=== PATIENT | male | born 1965 | race African-American/Black ===

== ENCOUNTER 2020-11-15 08:12 | Emergency (ER) | payer BC, SELFPAY ==
--- NOTE | ~2020-11-15 | CT_ITS ---
EXAMINATION: CTA brain carotid EXAM DATE: 11/15/2020 09:15 INDICATION: Dizziness since Sunday. TECHNIQUE: Noncontrast head CT. Spiral CTA of the carotid arteries was performed with intravenous i njection 100 cc of Omnipaque 350. Axial, coronal, sagittal reformatted images reviewed. Additional r eformatted images created on dedicated 3-D workstation. NASCET comparable standard used to assess th e degree of arterial stenosis. Spiral CT angiogram cerebral arteries performed with the same intrave nous injection of contrast. Source images of the brain CTA transferred to dedicated workstation for 3 -D rotational image creation. Coronal, sagittal maximum intensity pixel images also reviewed. The d ose-length product (DLP) for this examination was 1766.28 mGy-cm. The exposure was tailored accordi ng to patient size, and iterative reconstruction (ASIR) was used as additional dose reduction techniq ue. There is no prior study for comparison. FINDINGS: Minimal left carotid bulb arterial sclerosis. 0% carotid stenosis bilaterally. There are b ilateral posterior communicating artery dominant posterior cerebral arteries. There is no carotid o r vertebral basilar arterial dissection or fibromuscular dysplasia. There are no cerebral artery aneu rysms. There is symmetric cerebral artery arborization. The sagittal, transverse and sigmoid sinuses enhance normally, no venous sinus thrombosis. Internal cerebral veins also enhance normally. There is no acute intraparenchymal hemorrhage. No evidence of intraparenchymal brain mass lesion. N o evidence of acute infarction. There is no mass effect or midline shift. There is no obstructive hyd rocephalus suspected. There are no extra-axial collections. There are no calvarial acute fractures. There are no areas of abnormal enhancement on the postcontrast images. IMPRESSION: 1. No cervical arterial dissection or cerebral artery aneurysm. 2. No carotid stenosis. Reviewed, dictated and finalized at location [facility]. GRAPHY TECHNICIAN
[2020-11-15 08:15] VITALS: BP 155/108; PULSE 67; RESP 18; TEMP 36.8; O2SAT 98
--- NOTE | 2020-11-15 08:21 | ECG_ITS ---
Measurements Intervals [place] Rate: 64 P: 48 IA: 242 QRS: -13 QRSD: 103 T: 11 QT: 400 QTc: 413 Interpretive Statements SINUS RHYTHM WITH FIRST DEGREE AV BLOCK DELAYED PRECORDIAL R/S TRANSITION BASELINE ARTIFACT- I, II, V1 ABNORMAL ECG Electronically Signed On 11-15-2020 8:27:05 [employer]OOK[employer] MECHANIC by James Bryson D.O.
[2020-11-15 08:25] VITALS: BP 149/98; BP 155/108; PULSE 66; PULSE 70
[2020-11-15 08:26] VITALS: BP 160/107; PULSE 65
[2020-11-15 08:31] VITALS: BP 150/102; PULSE 57; RESP 15; O2SAT 95
[2020-11-15 08:31] LABS: Basophils Absolute Auto 0.1 K/mm3 (0.0-0.1); Basophils Percent Auto 0.9 % (0.2-1.2); Eosinophils Absolute Auto 0.4 K/mm3 (0-0.3); Hemoglobin 13.4 g/dL (14.0-18.0); Immature Granulocyte Absolute 0.08 K/mm3 (0.00-0.031); Immature Granulocyte Percent A 0.7 % (0-0.5); Immature Platelet Fraction Pct 7.4 % (0.9-11.2); Lymphocytes Absolute Auto 3.01 K/mm3 (0.9-3.2); Mean Corpuscular HGB Conc 29.1 g/dl (32-36); Mean Corpuscular Hemoglobin 18.4 pg (26-34); Monocytes Absolute Auto 0.9 K/mm3 (0.1-0.6); Monocytes Percent Auto 7.6 % (2.6-8.5); Neutrophils Absolute Auto 7.2 K/mm3 (1.3-6.7); Neutrophils Percent Auto 61.8 % (45.5-73.1); Platelet Count Result 731 k/mm3 (150-375); Red Cell Distribution Width 26.5 % (11.5-14.5); White Blood Count 11.6 K/mm3 (4.5-10.0)
[2020-11-15 08:41] LABS: Platelet Estimate Increased (Adequate)
[2020-11-15 08:44] LABS: Anisocytosis 2+ (NORMAL); Ovalocytes 2+ (NORMAL); Target Cells 2+ (NORMAL)
[2020-11-15 08:45] LABS: Stomatocytes 2+ (NORMAL)
--- NOTE | 2020-11-15 08:47 | ED.GENADULT ---
HPI - General Adult General Chief complaint: Dizziness Stated complaint: dizziness Time Seen by Provider: 11/15/20 08:18 Source: patient History of Present Illness HPI narrative: Patient is a 55 y/o male complaining of dizziness starting yesterday morning around 8:00 AM. He states that his dizziness was severe and it was a room spinning sensation. However, it resolved spontaneously after a few minutes. He had another similar episode this morning and it also resolved spontaneously. He states that the dizziness this was more a light-headed sensation than room-spinning sensation. He does not feel dizzy at this time. He states that movement may cause his dizziness to recur. He has no nausea, vomiting, chest pain, SOB, focal weakness or numbness. He states that he has periodic phlebotomy for thrombocytosis. He sees Dr. Jacob as his oncologist. Related Data Home Medications Medication Instructions Recorded Confirmed aspirin [Adult Low Dose Aspirin] 81 mg PO DAILY 11/15/20 11/15/20 atenolol 50 mg PO DAILY 11/15/20 11/15/20 diclofenac sodium 75 mg PO DAILY 11/15/20 11/15/20 enalapril-hydrochlorothiazide 1 tablet PO DAILY 11/15/20 11/15/20 Allergies Allergy/AdvReac Type Severity Reaction Status Date / Time No Known Allergies Allergy Mild Verified 11/15/20 08:19 Review of Systems Constitutional: Constitutional: Denies chills, Denies fever(s), Denies headache(s) and Denies weakness Eyes: Eyes: Denies blurry vision ENT: Denies headache(s) and Denies neck pain Cardiovascular: Cardiovascular: Denies chest pain and Denies dyspnea Respiratory: Respiratory: Denies cough and Denies dyspnea Gastrointestinal: Gastrointestinal: Denies abdominal pain, Denies diarrhea, Denies nausea and Denies vomiting Genitourinary: Genitourinary: Denies hematuria and Denies dysuria Musculoskeletal: Musculoskeletal: Denies back pain and Denies neck pain Neurologic: Reports dizziness, Denies headache(s) and Denies weakness PMFSH Social History Social History Gender identity (if verbalized by the patient): Male Exam Const: General: no acute distress and well developed Orientation/consciousness: oriented to person, oriented to place, oriented to time and patient oriented x3 HENMT: Head: normocephalic Ears: external ears normal General nose exam: Normal external nose present Eyes: General: appearance normal, both eyes and all related structures Conjunctivae: conjunctivae normal Neck: Neck: normal visual inspection and full ROM Chest: Chest palpation & inspection: normal inspection of the chest and no tenderness Resp: Effort & Inspection: normal respiratory effort Auscultation: clear to auscultation bilaterally Cardio: Rate: regular rate Rhythm: regular rhythm GI: GI Palp: No abdominal tenderness and Yes Soft to palpation Skin: General skin exam: normal color and turgor normal Neuro: General: oriented to person, oriented to place, oriented to time and patient oriented x3 Cranial nerves: Yes CN's II-XII intact bilaterally Cognition (Neuro): normal cognition Speech: normal speech Motor exam (neuro): 5/5 motor strength present throughout Sensory Exam: normal sensation Coordination: [id number] test normal and [id number] test normal Extrem: General: normal to inspection, full ROM and no pedal edema Psych: Appearance: grossly normal Mental Status: mental status grossly normal Affect: normal affect Course Reevaluation(s) Reevaluation #1: Rechecked. Patient does not feel dizzy at this time. He states that he gets dizzy when he gets up to move around. Offered patient admission for observation and further work up, but patient declined. Date: 11/15/20 Time: 11:03 Vital Signs Vital signs: Vital Signs Temperature 36.8 C 11/15/20 08:15 Pulse Rate 67 11/15/20 08:15 Respiratory Rate 18 11/15/20 08:15 Blood Pressure 155/108 H 11/15/20 08:15 Pulse Oximetry 98
[2020-11-15 08:48] LABS: Alanine Aminotransferase 18 U/L (4-50); Albumin Level 4.2 g/dL (3.5-5.1); Alkaline Phosphatase 69 U/L (38-126); Anion Gap 5 mmol/L (8-16); Aspartate Amino Transferase 40 U/L (17-59); Blood Urea Nitrogen 11 mg/dL (9-20); Calcium 8.8 mg/dL (8.4-10.2); Carbon Dioxide 28 mmol/L (22-30); Chloride 104 mmol/L (98-107); Estimated CRCL calculation 75 ml/min; Estimated Glomerular Filt Rate > 60; Glucose 107 mg/dL (75-110); Potassium 4.1 mmol/L (3.4-5.0); Sodium 137 mmol/L (137-145)
[2020-11-15 10:34] VITALS: BP 157/106; PULSE 61; RESP 17; O2SAT 97
[2020-11-15 11:16] VITALS: BP 151/106; PULSE 56; RESP 20; O2SAT 98
== END 2020-11-15 11:18 | disposition home or self-care (01) ==
PROVIDERS: Emergency Provider Emergency Medicine
DX: R42 Dizziness and giddiness (principal); I10 Essential (primary) hypertension; I44.0 Atrioventricular block, first degree; R94.31 Abnormal electrocardiogram [ECG] [EKG]
CPT/HCPCS: 36415; 70496; 70498; 80053; 85025; 85055; 93005; 99284; Q9967

== ENCOUNTER 2022-12-01 21:22 | Emergency (ER) | payer BC, SELFPAY ==
[2022-12-01] VITALS (11 sets, daily range): BP systolic 91–122; BP diastolic 54–79; PULSE 77–102; RESP 14–22; TEMP 36.7; O2SAT 95–99
--- NOTE | ~2022-12-01 | CT_ITS ---
EXAMINATION: CT BRAIN W/O DATE: 12/02/2022 02:14 INDICATION: Headache. Sensitivity to light. TECHNIQUE: Computed tomography (CT) of the head was performed without intravenous contrast. The dose- length product was 681.00 mGy-cm. COMPARISON: No prior studies for comparison. FINDINGS: Normal brain parenchymal volume for age. Normal kendrick-white differentiation. No acute intrac ranial hemorrhage, infarction, mass or mass effect. No ventriculomegaly or midline shift. Midline sagittal images demonstrate a normal corpus callosum, c raniovertebral junction and sella turcica. Basilar cisterns are patent. Paranasal sinuses and mastoids are pneumatized. No depressed skull fractures. IMPRESSION: 1. No acute intracranial abnormality. Reviewed, dictated and finalized at location [facility]. TRICIAN WIRING
[2022-12-01 22:09] LABS: Hematocrit 50.3 % (42.0-52.0); Hemoglobin 14.9 g/dL (14.0-18.0); Immature Platelet Fraction Pct 5.2 % (0.9-11.2); Mean Corpuscular HGB Conc 29.6 g/dl (32-36); Mean Corpuscular Hemoglobin 18.1 pg (26-34); Mean Corpuscular Volume 61.3 fl (80-100); Platelet Count Result 485 k/mm3 (150-375); Red Blood Count 8.21 M/mm3 (4.6-6.20); Red Cell Distribution Width 29.2 % (11.5-14.5); White Blood Count 17.5 K/mm3 (4.5-10.0)
[2022-12-01 22:17] LABS: Alanine Aminotransferase 30 U/L (6-50); Albumin Level 4.2 g/dL (3.5-5.1); Alkaline Phosphatase 92 U/L (38-126); Anion Gap 9 mmol/L (8-16); Aspartate Amino Transferase 55 U/L (17-59); Blood Urea Nitrogen 16 mg/dL (9-20); Calcium 8.8 mg/dL (8.4-10.2); Carbon Dioxide 24 mmol/L (22-30); Chloride 100 mmol/L (98-107); Estimated CRCL calculation 66 ml/min; Estimated Glomerular Filt Rate > 60; Glucose 126 mg/dL (65-110); INR 1.3; Partial Thromboplastin Time 36.5 SECONDS (22.3-36.8); Potassium 3.5 mmol/L (3.4-5.0); Prothrombin Time 15.5 Seconds (11.1-14.7); Sodium 133 mmol/L (137-145)
[2022-12-01 22:20] LABS: Influenza A QL RT-PCR Negative (Negative); Influenza B QL RT-PCR Negative (Negative); SARS-CoV-2 RNA PCR Negative
[2022-12-01 23:18] LABS: Band Neutrophils Percent 16 % (0-6); Eosinophils Absolute Manual 0.52 K/mm3 (0.02-0.5); Eosinophils Percent Manual 3 % (0-4); Lymphocytes Absolute Manual 1.22 K/mm3 (1.1-4.5); Metamyelocytes Percent 1 %; Monocytes Percent Manual 8 % (3-9); Myelocytes Percent 2 %; Neutrophils Absolute Manual 13.82 K/mm3 (1.3-6.7); Neutrophils Percent Manual 63 % (46-73); Platelet Estimate Adequate (Adequate); Total Cells Counted 100
[2022-12-01 23:19] LABS: Anisocytosis 3+ (NORMAL); Large Platelets Present; Macrocytosis 3+ (NORMAL); Microcytosis 1+ (NORMAL); Ovalocytes 3+ (NORMAL); Poikilocytosis 3+ (NORMAL); Spherocytes 1+ (NORMAL); Tear Drop Cells 2+ (NORMAL)
[2022-12-01 23:20] LABS: Schistocytes 2+ (NORMAL); Target Cells 2+ (NORMAL)
[2022-12-01 23:21] LABS: Atypical Lymphocytes Present; Hyperchromasia 1+ (NORMAL); Rouleaux 1+ (NORMAL)
[2022-12-01 23:51] LABS: Appearance Urine Clear (Clear); Bilirubin Urine 1+ (Negative); Blood Urine Negative (Negative); Color Urine Dark Yellow (Yellow); Glucose Urine UA Negative (Negative); Ketones Urine Trace mg/dL (Negative); Leukocyte Esterase Ur Trace LEU/UL (Negative); Nitrate Urine Negative (Negative); Protein Urine 1+ mg/dL (Negative); Specific Grav Ur 1.025 (1.001-1.035); pH Urine 5.5 (5.0-9.0)
[2022-12-01 23:56] LABS: Bacteria Urine Trace /hpf; Mucus Urine Moderate /lpf; RBC Urine 0-2 /hpf (0-2); WBC Urine 31-50 /hpf
[2022-12-01 23:57] LABS: Add Urine Microscopic? YES
[2022-12-02] MEDS: SODIUM CHLORIDE 0.9% IV 1,000 ML 999 ML IV CONT (00:30)
[2022-12-02] MEDS: MORPHINE SULFATE (*CRX) 4 MG/ML INJ IV PUSH (00:31)
[2022-12-02 01:02] VITALS: BP 126/75; PULSE 75; RESP 15; O2SAT 99
[2022-12-02] MEDS: KETOROLAC 30 MG/ML VIAL (*BKC) IV PUSH (01:28)
[2022-12-02 01:30] VITALS: PULSE 75; RESP 18; O2SAT 99
[2022-12-02 01:45] VITALS: PULSE 73; RESP 19; O2SAT 97
[2022-12-02 01:46] VITALS: BP 118/77; PULSE 76; RESP 18; O2SAT 97
--- NOTE | 2022-12-02 03:10 | ED.HA ---
HPI - Headache General Chief Complaint: Headache Stated Complaint: Headache, fatigue Time Seen by Provider: 12/01/22 21:40 History of Present Illness HPI Narrative: Patient is a 57-year-old male who presents ER with reports of headache. Ongoing for couple of days. Not sudden onset. Frontal and throbbing. /10. No change in vision or hearing. No numbness or tingling. Denies any neck pain or stiffness or sharp pains extending down his spine. No known sick contacts. Patient has history of polycythemia vera and receives occasional phlebotomy. Recently had his hydroxyurea dose increased. Patient reports subjective hot flashes and has been sweating. No documented fevers. No shaking chills. Patient reports history of sinusitis in the past but has no sinus congestion or pain at this time. Related Data Home Medications Medication Instructions Recorded Confirmed aspirin 81 mg tablet 81 mg PO DAILY 11/15/20 11/15/20 atenolol 50 mg tablet 50 mg PO DAILY 11/15/20 11/15/20 diclofenac sodium 75 mg 75 mg PO DAILY 11/15/20 11/15/20 tablet,delayed release enalapril 10 1 tablet PO DAILY 11/15/20 11/15/20 mg-hydrochlorothiazide 25 mg tablet Allergies Allergy/AdvReac Type Severity Reaction Status Date / Time No Known Allergies Allergy Mild Verified 12/01/22 22:09 Review of Systems Review of Systems: All systems reviewed & are unremarkable except as noted in HPI and below Constitutional: Constitutional: Denies chills, Reports fatigue and Reports fever(s) ENT: Denies nasal congestion and Denies sore throat Cardiovascular: Cardiovascular: Denies chest pain, Denies rapid heart rate and Denies radiating jaw, neck or arm pain Respiratory: Respiratory: Denies cough and Denies dyspnea Gastrointestinal: Gastrointestinal: Denies abdominal pain, Denies nausea and Denies vomiting Genitourinary: Genitourinary: Denies dysuria and Denies urinary frequency Comments: Dark urine Musculoskeletal: Musculoskeletal: Denies back pain, Denies myalgias and Denies arthralgias Neurologic: Denies confusion, Reports headache(s), Denies focal weakness and Denies numbness PMF Past Medical History Medical History (Updated 12/02/22 @ 03:18 by Yazan Sandhu MD) Hypertension Polycythemia vera Surgical History Surgical History (Updated 12/02/22 @ 03:13 by Yazan Sandhu MD) No pertinent past surgical history Social History Social History Gender identity (if verbalized by the patient): Male Exam Narrative: GENERAL: Well-appearing, well-nourished, and in no acute distress. HEAD: Normocephalic, atraumatic. ENT: Mucous membranes moist. NECK: Supple. Full range of motion without meningismus. CHEST: Clear to auscultation. No respiratory distress. HEART: Regular rate and rhythm. Normal peripheral pulses. ABDOMEN: Soft, nontender, nondistended. EXTREMITIES: Normal range of motion. No edema. SKIN: Warm, dry, no rash. NEURO: Alert and oriented x3. PSYCH: Normal mood and affect. Course Course Emergency Course: Patient resting comfortably. Headache went from 8/10 to 7/10 after morphine. Patient then received some fluids and Toradol and his headache went down to 3/10. Patient is in no distress and is nontoxic in appearance. He has had normal vital signs throughout the ER stay with the exception of when he presented to triage. He is without neurologic symptoms or meningeal signs. Flu and COVID testing were negative. CT scan of his head was unrevealing. Patient's urine does have the appearance that it could be infected and he does endorse that his urine is much darker than typical. He will be started on antibiotics to treat this. After having a sandwich and a soda patient's patients SHEA has resolved. Vital Signs Vital signs: Vital Signs Temperature 98.0 F 12/01/22 21:27 Pulse Rate 102 H 12/01/22 21:27 Respiratory Rate 16 12/01/22 21:27 Blood Pressure 91/61
[2022-12-02] MEDS: CEFUROXIME AXETIL 250 MG TABLET 500 MG PO (03:32)
[2022-12-02 03:33] VITALS: BP 120/82; PULSE 77; RESP 14; O2SAT 95
== END 2022-12-02 03:50 | disposition home or self-care (01) ==
PROVIDERS: Emergency Medicine; Emergency Provider Emergency Medicine
DX: N39.0 Urinary tract infection, site not specified (principal); R51.9 Headache, unspecified; Z20.822 Contact with and (suspected) exposure to COVID-19; I10 Essential (primary) hypertension; D75.1 Secondary polycythemia; Z79.82 Long term (current) use of aspirin
CPT/HCPCS: 36415; 70450; 80053; 81001; 85025; 85055; 85610; 85730; 87086; 87636; 96361; 96374; 96375; 99284; A9270; J1885; J2270; J7030

== ENCOUNTER 2022-12-16 10:58 | Inpatient (IN) | payer BC, SELFPAY ==
[2022-12-16] VITALS (50 sets, daily range): BP systolic 87–135; BP diastolic 50–88; PULSE 81–102; RESP 14–31; TEMP 36.1–38.7; O2SAT 90–98; BMI 36.9
--- NOTE | ~2022-12-16 | CT_ITS ---
EXAMINATION: CT abdomen pelvis w con DATE: 12/16/2022 13:18 INDICATION: Abdominal pain, nausea and vomiting. Urinary tract infection 2 weeks ago. Polycythemia ve ra. TECHNIQUE: Computed tomography (CT) of the abdomen and pelvis was performed with 100 CC Omnipaque 350 intravenous contrast. Automated exposure control and iterative reconstruction technique were employe d. Exam dose: 1054.28 mGy-cm total exam DLP. COMPARISON: None. FINDINGS: Patchy nodular infiltrates of middle and both lower lobes with some focal atelectasis or co nsolidation at the dependent lower lobes, right greater than left. Borderline splenomegaly, spleen measuring up to 13.6 cm vertical dimension. There are multiple hypoat tenuating lesions of variable size involving the spleen. Consider multiple splenic infarcts, essentia lly all of these lesions extend to the margin of the spleen. Splenic cysts, hemangioma, hamartomas, l ymphoma, myelofibrosis, leukemia, amyloidosis, sarcoidosis, and cultures disease and abscesses are le ss likely considerations in the differential diagnosis. Probable focal fatty infiltration of the medial segment of the left hepatic lobe anteromedially near the fissure for the ligamentum teres. No other hepatic space-occupying mass lesion is evident. The ga llbladder is unremarkable. No bile duct or pancreatic duct dilatation. No pancreatic mass lesion or c alcification. Approximately 10 x 15 mm left adrenal mass, likely a small adrenal adenoma. 1.7 cm mid right renal cyst. Exophytic lateral lower pole left renal 1.6 cm cyst. No urinary tract calculus or hydroureteronephrosis. There is moderate diffuse thickening of the urinary bladder wall likely due to prostatomegaly. Normal caliber of the abdominal aorta. No intraperitoneal or retroperitoneal or pelvic mass lesion or adenopathy or ascites. No bowel obstruction, bowel wall thickening, pneumatosis or intraperitoneal free air. Fat-containing umbilical hernia. Moderate degenerative disease at L4-5. Severe degenerative disc disease and mild retrolisthesis at L5-S1. Bilateral hip osteoarthritis. No suspicious osteolytic or osteoblastic lesions. IMPRESSION: Patchy bilateral lower lobe and middle lobe nodular infiltrates, bilateral lower lobe focal areas of atelectasis or consolidation Borderline splenomegaly, multiple hypoattenuating lesions of the spleen; consider multiple splenic in farcts, splenic cysts, abscesses; further differential diagnosis is included above 10 x 15 mm left adrenal mass Bilateral renal cysts Prostatomegaly, likely accounting for moderate diffuse bladder wall thickening Reviewed, dictated and finalized at [facility]. Reviewed, dictated and finalized at location [facility]. A PRODUCER IMPRESSION: Patchy bilateral lower lobe and middle lobe nodular infiltrates, bilateral lowe r lobe focal areas of atelectasis or consolidation Borderline splenomegaly, multiple hypoattenuating lesions of the spleen; consid er multiple splenic infarcts, splenic cysts, abscesses; further differential di agnosis is included above 10 x 15 mm left adrenal mass Bilateral renal cysts Prostatomegaly, likely accounting for moderate diffuse bladder wall thickening
--- NOTE | ~2022-12-16 | XR_ITS ---
XR chest 1V portable DATE: 12/16/2022 11:53 INDICATION: Cough TECHNIQUE: Portable upright AP chest on December 16, 2022 at 1152 hours COMPARISON: None FINDINGS: There is prominence of the minor fissure suggesting subpleural edema. There is mild pulmona ry vascular congestion and redistribution. Heart size appears within normal range considering magnifi cation associated with AP projection. There are bilateral primarily central and lower lung infiltrates which may be due to pulmonary edema. Pneumonia or aspiration are not excluded. Osteophytic change at both glenohumeral joints. Osteopenia. IMPRESSION: Congestive changes, including bilateral central and lower lung zone infiltrates, which ma y be due to pulmonary edema; pneumonia or aspiration are not excluded. Reviewed, dictated and finalized at location A. CTOR OF PATIENT SAFETY IMPRESSION: Congestive changes, including bilateral central and lower lung zone infiltrates, which may be due to pulmonary edema; pneumonia or aspiration are not excluded.
--- NOTE | ~2022-12-16 | CT_ITS ---
EXAMINATION: CT chest abdomen pelvis wo con DATE: 12/19/2022 08:55 INDICATION: Leukocytosis and fever TECHNIQUE: Transaxial computed tomographic images of the chest, abdomen, and pelvis were obtained wit hout intravenous contrast. The dose-length product (DLP) was 1449.41 mGy-cm. Automated exposure contr ol and iterative reconstruction technique were employed. COMPARISON: 12/16/2022 FINDINGS: CHEST CT: There are innumerable tiny nodules scattered throughout all lobes of the lungs. There are small pleur al effusions. There is no pneumothorax. There is mediastinal and bilateral hilar lymphadenopathy, lik peter reactive. The heart size is normal. There is a trace pericardial effusion. There is moderate thor acic spondylosis. ABDOMEN/PELVIS CT: Cysts of the liver measure up to 10 mm. The enlarged spleen measures 15.8 cm. Again seen are multiple fluid attenuation areas of the spleen which measure up to 6.9 cm. The pancreas, gallbladder, and rig ht adrenal gland are normal. There is an unchanged 10 mm mass of the left adrenal gland. Cysts of the kidneys measure up to 1.7 cm on the left. No pathologically enlarged abdominal or pelvic lymph nodes are identified. No free intraperitoneal gas or evidence of bowel obstruction. There is an umbilical hernia containing fat. There is circumferential wall thickening of the urinary bladder which is incom pletely distended. There is severe lumbar spondylosis at L5-S1. IMPRESSION: 1. Innumerable small nodules scattered throughout all lobes of the lungs, likely infectious. Metastat ic disease is considered less likely in the absence of known malignancy. 2. Small pleural effusions. 3. Splenomegaly with stable fluid attenuation lesions of the spleen, differential as previously descr ibed. 4. Small left adrenal mass, probable adenoma. Consider follow-up adrenal CT in 12 months. Reviewed, dictated and finalized at location L. UND SALES ADVISOR IMPRESSION: 1. Innumerable small nodules scattered throughout all lobes of the lungs, likel y infectious. Metastatic disease is considered less likely in the absence of kn own malignancy. 2. Small pleural effusions. 3. Splenomegaly with stable fluid attenuation lesions of the spleen, differenti al as previously described. 4. Small left adrenal mass, probable adenoma. Consider follow-up adrenal CT in 12 months.
--- NOTE | ~2022-12-16 | XR_ITS ---
EXAMINATION: XR chest 2V DATE: 12/25/2022 16:11 INDICATION: Pneumonia. TECHNIQUE: Frontal and lateral views of the chest were obtained. COMPARISON: Chest single view 12/16/2022, chest CT 12/19/2022, neck CTA 11/15/2020 FINDINGS: There are small nodules in the lungs with a lower lung predominance. No pleural effusion or pneumothorax. The heart size is normal. IMPRESSION: 1. Small nodules in the lungs with a lower lung predominance with interval improvement, most likely i nfection including bacterial, fungal, viral, or mycobacterial infection. Reviewed, dictated and finalized at location A. EMIC DEAN IMPRESSION: 1. Small nodules in the lungs with a lower lung predominance with interval impr ovement, most likely infection including bacterial, fungal, viral, or mycobacte rial infection.
--- NOTE | 2022-12-16 11:26 | ECG_ITS ---
Measurements Intervals [place] Rate: 100 P: 47 [place]: 203 QRS: -14 QRSD: 98 T: 22 QT: 337 QTc: 435 Interpretive Statements SINUS TACHYCARDIA POOR R-WAVE PROGRESSION, CANNOT RULE OUT OLD ANTERIOR MYOCARDIAL INFARCTION COMPARED TO ECG 11/15/2020 08:19:33 SINUS TACHYCARDIA NOW PRESENT Electronically Signed On 12-16-2022 19:44:14 [employer] by Rosa M Raya M.D.
[2022-12-16 11:33] LABS: Hematocrit 47.1 % (42.0-52.0); Hemoglobin 14.3 g/dL (14.0-18.0); Immature Platelet Fraction Pct 7.6 % (0.9-11.2); Mean Corpuscular HGB Conc 30.4 g/dl (32-36); Mean Corpuscular Hemoglobin 19.9 pg (26-34); Mean Corpuscular Volume 65.6 fl (80-100); Platelet Count Result 1337 k/mm3 (150-375); Red Blood Count 7.18 M/mm3 (4.6-6.20); Red Cell Distribution Width 32.6 % (11.5-14.5); White Blood Count 31.7 K/mm3 (4.5-10.0)
[2022-12-16] MEDS: SODIUM CHLORIDE 0.9% IV 1,000 ML 999 ML IV CONT ×3 (11:38→18:16)
[2022-12-16 11:42] LABS: Alanine Aminotransferase 88 U/L (6-50); Albumin Level 3.9 g/dL (3.5-5.1); Alkaline Phosphatase 293 U/L (38-126); Anion Gap 5 mmol/L (8-16); Aspartate Amino Transferase 122 U/L (17-59); Blood Urea Nitrogen 25 mg/dL (9-20); Calcium 8.1 mg/dL (8.4-10.2); Carbon Dioxide 26 mmol/L (22-30); Chloride 97 mmol/L (98-107); Estimated CRCL calculation 56 ml/min; Estimated Glomerular Filt Rate 58; Glucose 113 mg/dL (65-110); Potassium 3.7 mmol/L (3.4-5.0); Sodium 128 mmol/L (137-145)
--- NOTE | 2022-12-16 11:50 | ED.GENADULT ---
HPI - General Adult General Chief complaint: Fever Stated complaint: Fatigue, Bloating, Nausea, Fever Time Seen by Provider: 12/16/22 11:29 Source: RN notes reviewed History of Present Illness HPI narrative: Patient presents emergency department from home for not feeling well. Patient states that he has a history of polycythemia vera and is followed by Dr. Swanson at [facility] in [place] states he is post be on hydroxyurea but does not like regularly taking it as it makes him not feel well states he had been seen on Sunday and had blood work showing platelets over thousand and he been restarted on his hydroxyurea states he took a dose yesterday morning and since then has not been feeling well states has been having nausea and vomiting as well as generalized fatigue this morning the patient began to spike a fever and has a temperature of 101.6 on arrival he states he does not have Tylenol he denies any chest pain or shortness of breath but does note a mild cough he denies any abdominal pain but does note nausea and vomiting denies diarrhea Related Data Home Medications Medication Instructions Recorded Confirmed aspirin 81 mg tablet 81 mg PO DAILY 11/15/20 11/15/20 atenolol 50 mg tablet 50 mg PO DAILY 11/15/20 11/15/20 diclofenac sodium 75 mg 75 mg PO DAILY 11/15/20 11/15/20 tablet,delayed release enalapril 10 1 tablet PO DAILY 11/15/20 11/15/20 mg-hydrochlorothiazide 25 mg tablet Allergies Allergy/AdvReac Type Severity Reaction Status Date / Time No Known Allergies Allergy Mild Verified 12/16/22 11:31 Review of Systems Review of Systems: Gen.: Reports fever Eyes: Denies eye pain or visual change ENT: Denies congestion Respiratory: Denies shortness of breath reports cough CV: Denies chest pain or palpitations GI: See HPI Musculoskeletal: Denies back pain or muscle pain Neuro: See HPI Skin: Denies rash Except as documented, all other systems reviewed and negative [facility] Past Medical History Medical History Hypertension Polycythemia vera Surgical History Surgical History (Updated 12/02/22 @ 03:13 by Yazan Sandhu MD) No pertinent past surgical history Social History Social History (Updated 12/16/22 @ 17:50 by MERLY Bonilla Smoking status: Never smoker Gender identity (if verbalized by the patient): Male Exam Narrative: APPEARANCE: No acute distress, nontoxic, resting in bed EYES: EOMI, PERRL HEENT: Normocephalic, atraumatic, oral mucosa dry RESPIRATORY: No respiratory distress Clear to auscultation bilaterally with no rhonchi wheezing or rales. CARDIOVASCULAR: Regular rate and rhythm without murmurs rubs or gallops. ABDOMINAL: Soft, nontender, nondistended, no rebound or guarding MUSCULOSKELETAl: Moves all extremities. No clubbing, cyanosis or edema. NEURO: Awake and alert x 4. Following commands, speech normal, no focal deficits SKIN:: Warm, dry. No rashes lesions or abrasions PSYCHIATRIC: Normal affect/mood, Course Course Emergency Course: Discussed with patient states he has no history of any other CT scans at [facility] Called and discussed with hematology fellow at [facility] Dr. Kerns presentation work-up we discussed findings of CT scan and lab results. This time he recommends patient remain on aspirin 81 mg daily recommends no further hydroxyurea and does not recommend any further anticoagulation at this time is unsure of when splenic infarcts occurred Discussed with Dr. Parks at [facility] who accepts the patient for transfer. Per Dr. Parks as well as the [facility] patient is on a multiday waiting list Discussed with ROSE Boyle for Dr. Garcia presentation work-up excepts admission to our facility as the patient is waiting for a bed Discussed with patient and family results of workup and diagnosis. Discussed need for admission. Patient and family understand and agree to current
[2022-12-16 11:53] LABS: Lactic Acid Reflex 2.2 mmol/L (0.7-2.0)
[2022-12-16 11:55] LABS: INR 1.7; Prothrombin Time 19.5 Seconds (11.1-14.7)
[2022-12-16 11:56] LABS: Partial Thromboplastin Time 38.9 SECONDS (22.3-36.8)
[2022-12-16 11:59] LABS: Lipase 51 U/L (23-300); Magnesium 1.8 mg/dL (1.6-2.3)
[2022-12-16 12:03] LABS: Giant Platelets Present; Large Platelets Present; Platelet Estimate Increased (Adequate)
[2022-12-16 12:04] LABS: Anisocytosis 3+ (NORMAL); Band Neutrophils Percent 23 % (0-6); Hypochromasia 1+ (NORMAL); Microcytosis 1+ (NORMAL); Neutrophils Absolute Manual 29.48 K/mm3 (1.3-6.7); Neutrophils Percent Manual 70 % (46-73); Schistocytes None Seen (NORMAL); Total Cells Counted 100
[2022-12-16 12:05] LABS: Lymphocytes Absolute Manual 1.26 K/mm3 (1.1-4.5); Lymphocytes Percent Manual 4 % (18-44); Monocytes Absolute Manual 0.95 K/mm3 (0.1-0.90); Monocytes Percent Manual 3 % (3-9)
[2022-12-16 12:21] LABS: Influenza A QL RT-PCR Negative (Negative); Influenza B QL RT-PCR Negative (Negative); RSV RNA, RT-PCR Negative (Negative); SARS-CoV-2 RNA PCR Negative
[2022-12-16 12:34] LABS: NT Pro B Type Natriuretic Pept 752 pg/mL (19.9-100); Troponin I < 0.012 ng/mL (0.000-0.034)
[2022-12-16 13:03] LABS: Add Urine Microscopic? YES; Appearance Urine Clear (Clear); Bilirubin Urine 2+ (Negative); Blood Urine Trace-intact (Negative); Glucose Urine UA Negative (Negative); Ketones Urine Trace mg/dL (Negative); Leukocyte Esterase Ur Negative LEU/UL (Negative); Nitrate Urine Negative (Negative); Protein Urine 1+ mg/dL (Negative); pH Urine 5.5 (5.0-9.0)
[2022-12-16 13:05] LABS: RBC Urine 0-2 /hpf (0-2); Squamous Epithelial Cell Urine Rare /hpf (Few); WBC Urine 0-3 /hpf
[2022-12-16 13:11] LABS: Color Urine Orange (Yellow)
[2022-12-16 14:42] LABS: Reflex Lactic Acid Yes or No Add Lactic
[2022-12-16 15:35] LABS: Lactic Acid 1.6 mmol/L (0.7-2.0)
[2022-12-16] MEDS: ASPIRIN 81 MG CHEWABLE TABLET PO (16:07)
[2022-12-16] MEDS: SODIUM CHLORIDE 0.9% IV 1,000 ML 125 ML IV CONT (16:08)
--- NOTE | 2022-12-16 16:57 | PC.NURSE ---
[facility] called for triage. Pt has been accepted by Dr. Grant. They will call when they have a bed available.
--- NOTE | 2022-12-16 18:00 | PM.IMHP ---
H&P: HPI History of Present Illness Date/Time: 12/16/22 18:00 Chief Complaint: Fever and vomiting. Narrative: This is a very pleasant 57-year-old male with polycythemia vera, thrombocytosis, and hypertension who presented to the ED from home for evaluation of fever and vomiting. He was diagnosed with polycythemia little over year ago and at the beginning of the year he had is hydroxyurea dose doubled due to continued thrombocytosis. Not long after increasing his dose he started to feel unwell with generalized malaise, headache, sweats, and hot flashes. He was seen emergency department on 12/01/2022 for evaluation of these symptoms and at that time his labs were significant for a WBC of 17.5, platelet 485, sodium 133. Brain CT was unremarkable. Urine was concerning for infection he was discharged with cefuroxime which he completed; there was no growth on his urine culture however. He saw his floor grinder for a follow-up appointment shortly after that ER visit and they were concerned that his platelet count had dropped rapidly (reportedly over 1,000,000 to just under 500,000) and he was told to hold the hydroxyurea. Yesterday he had outpatient lab work done and was told his platelet count was once again near 1,000,000 and he was told to start back on hydroxyurea 1000 mg a day. He believes that it is the increase in the hydroxyurea dose that is causing him to feel unwell as he has once again starting to feel fatigued with weakness and sweats. His appetite has not been good for about 24 hours and he notes generalized abdominal distension yesterday with nausea and vomiting though that has improved. He has not had any overt abdominal pain. He has had perhaps a mild cough but nothing significant. He continues to have a mild, diffuse headache. No sinus congestion, neck pain, sore throat, or rash. He denies sick contacts. Temperature was 101.6? on arrival to the ED today and his blood pressures have been running at the low end of normal. Labs today were significant for a WBC count of 31.7 with 23% bands, platelet 1337, PT 19.5, PTT 38.9, INR 1.7, sodium 128, potassium 3.7, BUN 25, creatinine 1.50, lactic acid 2.2, total bilirubin 3.0, AST 122, ALT 88, alkaline phosphatase 293, lipase 51. He was negative for flu, RSV, and COVID. Chest x-ray shows mild congestive changes and possible aspiration or pneumonia. CT abdomen and pelvis showed patchy bilateral lower lobe and middle lobe nodule infiltrates and bilateral lower lobe focal areas of atelectasis or consolidation as well as will hypoattenuating lesions of the spleen with a differential diagnosis to include splenic infarcts, splenic cyst, abscesses, and others per radiologist report. ED physician discussed the case with the floor grinder on-call for his specialist. They are willing to accept the patient in transfer but will not have beds for many days. They recommend that the patient be started on aspirin 81 mg daily. Given lack of abdominal pain and benign abdominal exam, they do not recommend anticoagulation. He has been started on broad-spectrum antibiotics and is being admitted for further treatment and evaluation. Review of Systems Review of Systems: Twelve systems were reviewed and are negative except for as per HPI. [facility] Past Medical History Medical History (Updated 12/16/22 @ 23:27 by Tamar Yo PA-C) Hypertension Polycythemia vera Thrombocytosis Surgical History Surgical History No pertinent past surgical history Family History Family History Father Diabetes mellitus Mother Diabetes mellitus Social History Social History (Updated 12/16/22 @ 23:12 by Tamar Yo PA-C) Social History: Surrogate medical decision maker: Judy Cerda, spouse. Code status: Full code. Smoking status: Never smoker Second hand tobacco smoke exposure: No Alcohol intake: nev
--- NOTE | 2022-12-16 22:34 | PC.NURSE ---
This patient, Colby Cerda, was admitted to IMU Room 210-01 on 12/16/22 at 2224. Patient/family oriented to hospital policies and general routines including ID bracelet, bed and alarms, visiting hours, pain management, procedures, bathroom and other care routines, personal items, smoking policy, room service/diet, and visiting hours. Information on how to activate the Rapid Response Team has been discussed. Patient/Family are encouraged to report perceived risks to care and to ask questions if they do not understand what they are told or what they should do.
[2022-12-17] VITALS (10 sets, daily range): BP systolic 110–127; BP diastolic 69–81; PULSE 78–95; RESP 18–24; TEMP 36.2–36.9; O2SAT 94–99
[2022-12-17 00:02] LABS: Alanine Aminotransferase 69 U/L (6-50); Albumin Level 3.2 g/dL (3.5-5.1); Alkaline Phosphatase 223 U/L (38-126); Anion Gap 5 mmol/L (8-16); Aspartate Amino Transferase 75 U/L (17-59); Bilirubin,Total 1.8 mg/dL (0.2-1.3); Blood Urea Nitrogen 17 mg/dL (9-20); Calcium 7.6 mg/dL (8.4-10.2); Carbon Dioxide 26 mmol/L (22-30); Chloride 104 mmol/L (98-107); Creatine Kinase 133 U/L (55-170); Estimated CRCL calculation 76 ml/min; Estimated Glomerular Filt Rate > 60; Glucose 98 mg/dL (65-110); Lactate Dehydrogenase 372 U/L (120-246); Potassium 3.3 mmol/L (3.4-5.0); Sodium 135 mmol/L (137-145)
--- NOTE | 2022-12-17 00:31 | PC.NURSE ---
[facility] for an update on patient. Still no beds available. Advised to call if patient's status changes.
[2022-12-17 01:15] LABS: Thyroid Stimulating Hormone Reflex 0.371 uIU/mL (0.465-4.68)
[2022-12-17 03:43] LABS: Creatinine Urine 134.2 mg/dL
[2022-12-17 03:48] LABS: Free T4 Free Thyroxine Reflex 1.72 ng/dL (0.78-2.19)
[2022-12-17 04:06] LABS: Sodium Urine Random 72 meq/L
[2022-12-17 04:34] LABS: Total Triiodothyronine (T3) 0.66 NG/ML (0.97-1.69)
[2022-12-17 04:39] LABS: Hematocrit 43.5 % (42.0-52.0); Immature Platelet Fraction Pct 7.4 % (0.9-11.2); Mean Corpuscular HGB Conc 29.9 g/dl (32-36); Mean Corpuscular Hemoglobin 19.8 pg (26-34); Mean Corpuscular Volume 66.4 fl (80-100); Platelet Count Result 1070 k/mm3 (150-375); Red Blood Count 6.55 M/mm3 (4.6-6.20); Red Cell Distribution Width 32.4 % (11.5-14.5); White Blood Count 21.5 K/mm3 (4.5-10.0)
[2022-12-17 04:49] LABS: INR 1.5; Prothrombin Time 17.5 Seconds (11.1-14.7)
[2022-12-17 04:50] LABS: Partial Thromboplastin Time 42.5 SECONDS (22.3-36.8)
[2022-12-17 04:51] LABS: Alanine Aminotransferase 62 U/L (6-50); Alkaline Phosphatase 198 U/L (38-126); Anion Gap 0 mmol/L (8-16); Aspartate Amino Transferase 77 U/L (17-59); Bilirubin,Total 1.4 mg/dL (0.2-1.3); Blood Urea Nitrogen 15 mg/dL (9-20); Calcium 7.5 mg/dL (8.4-10.2); Carbon Dioxide 30 mmol/L (22-30); Chloride 103 mmol/L (98-107); Estimated CRCL calculation 76 ml/min; Estimated Glomerular Filt Rate > 60; Glucose 104 mg/dL (65-110); Magnesium 2.1 mg/dL (1.6-2.3); Potassium 3.5 mmol/L (3.4-5.0); Sodium 133 mmol/L (137-145)
[2022-12-17 05:10] LABS: Band Neutrophils Percent 13 % (0-6); Lymphocytes Absolute Manual 1.29 K/mm3 (1.1-4.5); Monocytes Absolute Manual 1.07 K/mm3 (0.1-0.90); Monocytes Percent Manual 5 % (3-9); Neutrophils Absolute Manual 19.13 K/mm3 (1.3-6.7); Neutrophils Percent Manual 76 % (46-73); Platelet Estimate Increased (Adequate); Total Cells Counted 100
[2022-12-17 05:11] LABS: Anisocytosis 2+ (NORMAL); Large Platelets Present; Poikilocytosis 2+ (NORMAL)
[2022-12-17 05:12] LABS: Schistocytes Rare (NORMAL)
[2022-12-17 05:13] LABS: Crenated RBC 1+ (NORMAL)
[2022-12-17] MEDS: ASPIRIN 81 MG CHEWABLE TABLET PO (08:42)
--- NOTE | 2022-12-17 11:53 | PM.IMPN ---
Progress Note: A&P Assessment and Plan (1) Sepsis: Code(s): A41.9 - Sepsis, unspecified organism Status: Acute Assessment and Plan: Improved (2) Pneumonia: Code(s): J18.9 - Pneumonia, unspecified organism Status: Acute Assessment and Plan: IV antibiotics (3) Polycythemia vera: Code(s): D45 - Polycythemia vera Status: Acute Assessment and Plan: Hold hydroxyurea for now at the recommendation of the on-call greens picker at [facility], Dr. Kerns. He has been accepted at [facility] though they expect a multi day wait for a bed to open. I will ask Dr. Matthews to see him in consultation for his opinion and recommendations. (4) Thrombocytosis: Code(s): D75.839 - Thrombocytosis, unspecified Status: Acute Assessment and Plan: Platelets are once again over a million. Hydroxyurea on hold as detailed above. (5) Abnormal computed tomography of abdomen and pelvis: Code(s): R93.5 - Abnormal findings on diagnostic imaging of other abdominal regions, including retroperitoneum Status: Acute Assessment and Plan: CT shows multiple hypoattenuating lesions of the spleen with a broad differential diagnosis to include infarcts (this seems likely and they may very well be a chronic finding given benign abdominal exam), cysts, hemangiomas, hamartomas, infiltrative process, and less likely abscesses. (6) Abnormal coagulation profile: Code(s): R79.1 - Abnormal coagulation profile Status: Acute Assessment and Plan: PT, PTT, and INR are all of it prolonged. He is not on anticoagulation, no evidence of bleeding. LFTs elevated as well. Repeat in a.m. (7) Hyponatremia: Code(s): E87.1 - Hypo-osmolality and hyponatremia Status: Acute Assessment and Plan: He looks dry on exam and by history and he was hydrated in the emergency department. Repeat sodium level this evening to ensure it is correcting appropriately. Check TSH, urine and serum osmolalities, and urine sodium. (8) Dehydration: Code(s): E86.0 - Dehydration Status: Acute Assessment and Plan: He was fluid resuscitated in the emergency department. As long as his blood pressure is stable will hold on further IV fluids to avoid over-hydration. Monitor daily weights and I/O. (9) Transaminitis: Code(s): R74.01 - Elevation of levels of liver transaminase levels Status: Acute Assessment and Plan: Etiology unclear. Abdominal exam is fairly benign with no abnormal findings of the gallbladder or liver on CT. May be related to infection, sepsis, or even the hydroxyurea which is currently on hold. Check hepatitis panel and repeat LFTs in a.m. (10) Hypertension: Code(s): I10 - Essential (primary) hypertension Status: Chronic Assessment and Plan: Antihypertensives on hold given low blood pressures. Subjective Date/time seen: 12/17/22 11:53 Not requiring oxygen Reports he feels better Exam Narrative: General: Moderately ill-appearing gentleman in the semi-Rivero position in bed. Weight: 107.1 kg. BMI: 37.0. HEENT: Normocephalic, atraumatic. PERRL, EOMI. Sclera anicteric. Tacky mucous membranes. Neck: Supple. No lymphadenopathy. No nuchal rigidity. Respiratory: Respirations are nonlabored and he is speaking in full sentences. Coarse lung sounds at the bases. Cardiovascular: Regular rate and rhythm with S1-S2. No significant murmur. Gastrointestinal: Abdomen is soft, nontender, and nondistended with positive bowel sounds. No guarding or rebound tenderness. Skin: Warm and dry. Small amount of sweat at the brow. Extremities: No cyanosis, clubbing, or edema. Radial and pedal pulses intact. Neurological: Alert and oriented. Cranial nerves 2-12 are grossly intact. No gross focal deficits to casual conversation. Psychiatric: Pleasant and cooperative with normal mood and affect. Judgment and
--- NOTE | 2022-12-17 18:45 | PC.NURSE ---
This patient, Colby Cerda, was received from [facility] on 12/17/22 at 1845. Patient/family oriented to unit policies and routines. Report received.
--- NOTE | 2022-12-17 18:48 | PC.NURSE ---
This patient, Colby Cerda, was transferred to [[id number] ] on 12/17/22 at 1845. Personal belongings sent with patient. Report given to [HILARY Tyler ]. Appropriate documentation sent with patient.
[2022-12-18] VITALS (12 sets, daily range): BP systolic 113–182; BP diastolic 66–137; PULSE 82–129; RESP 13–32; TEMP 36.3–39.5; O2SAT 93–97; BMI 37.1
--- NOTE | 2022-12-18 08:19 | PDONCCN ---
HPI - Date of Consult Date/Time: 12/18/22 08:19 Requesting Physician: Josh Garcia MD Primary Care Provider: Gabo Burton, - Consult Narrative Reason for consult: Myeloproliferative disorder Narrative: Colby Cerda is a 57 year old male with diagnosis of polycythemia and essential thrombocythemia about a year ago. He was on hydroxyurea 500 mg once a day and was tolerating it well until recently when the dose was increased to hydroxyurea 1000 mg a day that he started having some nausea vomiting. He discontinued taking the medicine last Sunday. He came into the hospital with generalized weakness tiredness and fatigue along with nausea and fever. Testing for COVID was negative. Chest x-ray showed congestive changes with possible aspiration pneumonia. CT abdomen and pelvis showed bilateral lower lobe infiltrate as well as hypoattenuating lesion of the spleen differential diagnosis includes splenic infarction. Patient is on baby aspirin. Labs showed platelet count of 1.3 million now dropped down to less than 1,000,000. Patient was started on antibiotic with azithromycin cefepime and vancomycin. He is feeling better. Review of Systems - Review of Systems All systems reviewed & are unremarkable except as noted in HPI and [facility] Medical History: Medical History (Last Updated 12/16/22 @ 23:27 by Tamar Yo PA-C) Hypertension Polycythemia vera Thrombocytosis Surgical History: Surgical History (Last Reviewed 12/16/22 @ 23:12 by Tamar Yo PA-C) No pertinent past surgical history Family History: Family History (Last Reviewed 12/16/22 @ 23:12 by Tamar Yo PA-C) Father Diabetes mellitus Mother Diabetes mellitus - Social History Social History: Social History (Last Updated 12/16/22 @ 23:12 by Tamar Yo PA-C) Alcohol Use: Alcohol intake: never Substance Use: Substance use: never Others: Spiritual care concerns: No Smoking Status: Smoking status: Never smoker Second hand tobacco smoke exposure: No Social Determinants of Health: Has the Lack of Transportation Kept You From Medical Appointments or From Getting Medications?: No Within the Past 12 Months, Were You Worried Whether Your Food Would Run Out Before You Got Money to Buy More?: Never True What is Your Housing Situation Today?: I Have Housing Are You Worried That in the Next 2 Months, You May Not Have Your Own Housing to Live In?: No Do You Have Trouble Paying Your Heating Or Electricity Bill?: No Do You Have Trouble Paying For Medicines?: No Are You Currently Unemployed and Looking for Work?: No Highest Level of Education Completed: High School Diploma/GED Do You Have Trouble With Childcare or the Care of a Family Member?: No Exam - Vital Signs Vital Signs - 24 hr 12/17/22 10:00 12/17/22 12:00 12/17/22 12:00 Temperature Pulse Rate 94 94 Respiratory Rate Blood Pressure Pulse Oximetry 99 Oxygen Delivery Room Air 12/17/22 14:00 12/17/22 16:00 12/17/22 16:00 Temperature Pulse Rate 92 88 Respiratory Rate Blood Pressure Pulse Oximetry 98 Oxygen Delivery Room Air 12/17/22 16:00 12/17/22 20:00 12/18/22 06:00 Temperature 36.8 C 36.7 C Pulse Rate 86 78 82 Respiratory Rate 24 H 18 18 Blood Pressure 127/79 144/96 H Pulse Oximetry 97 96 97 Oxygen Delivery Room Air - Exam HEENT: EOMI, PERRLA, mucous membranes moist and pink Neck: supple. No: JVD Lungs: clear to auscultation, normal air movement Heart: no murmurs, gallops, or rubs, regular rhythm, regular rate Abdomen: abdomen soft, non-distended, normal bowel sounds Extremities: normal pulses Integumentary: no abnormalities Neurological: normal speech Psychological: mental status NL, mood NL - Lab Results Laboratory Last Values WBC 21.5 K/mm3 (4.5-10.0) H 12/17/22 04:29 RBC 6.55 M/mm3 (4.6-6.20) H
[2022-12-18] MEDS: HYDROXYUREA (*CHEMO) 500 MG CAPSULE PO (09:30)
--- NOTE | 2022-12-18 10:43 | PM.IMPN ---
Progress Note: A&P Assessment and Plan (1) Sepsis: Code(s): A41.9 - Sepsis, unspecified organism Status: Acute Assessment and Plan: Improved, monitor (2) Pneumonia: Code(s): J18.9 - Pneumonia, unspecified organism Status: Acute Assessment and Plan: Symptoms improved. Currently on cefepime, azithromycin, vancomycin. (3) Polycythemia vera: Code(s): D45 - Polycythemia vera Status: Acute Assessment and Plan: Continue hydroxyurea (4) Thrombocytosis: Code(s): D75.839 - Thrombocytosis, unspecified Status: Acute Assessment and Plan: Continue hydroxyurea. Platelet count improved (5) Abnormal computed tomography of abdomen and pelvis: Code(s): R93.5 - Abnormal findings on diagnostic imaging of other abdominal regions, including retroperitoneum Status: Acute Assessment and Plan: CT shows multiple hypoattenuating lesions of the spleen with a broad differential diagnosis to include infarcts (may very well be a chronic finding given benign abdominal exam), cysts, hemangiomas, hamartomas, infiltrative process, and less likely abscesses. (6) Abnormal coagulation profile: Code(s): R79.1 - Abnormal coagulation profile Status: Acute Assessment and Plan: LFTs elevated as well. Repeat in a.m. (7) Hyponatremia: Code(s): E87.1 - Hypo-osmolality and hyponatremia Status: Acute Assessment and Plan: Asymptomatic, monitor (8) Dehydration: Code(s): E86.0 - Dehydration Status: Acute Assessment and Plan: Resolved (9) Transaminitis: Code(s): R74.01 - Elevation of levels of liver transaminase levels Status: Acute Assessment and Plan: Check hepatitis panel and monitor LFTs (10) Hypertension: Code(s): I10 - Essential (primary) hypertension Status: Chronic Assessment and Plan: Monitor Subjective Date/time seen: 12/18/22 10:43 No new complaints Exam Narrative: General: Moderately ill-appearing gentleman in the semi-Rivero position in bed. Weight: 107.1 kg. BMI: 37.0. HEENT: Normocephalic, atraumatic. PERRL, EOMI. Sclera anicteric. Tacky mucous membranes. Neck: Supple. No lymphadenopathy. No nuchal rigidity. Respiratory: Respirations are nonlabored and he is speaking in full sentences. Coarse lung sounds at the bases. Cardiovascular: Regular rate and rhythm with S1-S2. No significant murmur. Gastrointestinal: Abdomen is soft, nontender, and nondistended with positive bowel sounds. No guarding or rebound tenderness. Skin: Warm and dry. Small amount of sweat at the brow. Extremities: No cyanosis, clubbing, or edema. Radial and pedal pulses intact. Neurological: Alert and oriented. Cranial nerves 2-12 are grossly intact. No gross focal deficits to casual conversation. Psychiatric: Pleasant and cooperative with normal mood and affect. Judgment and insight intact. Objective Data Vital Signs Vital Signs: Vital Signs - 24 hr 12/17/22 12:00 12/17/22 12:00 12/17/22 14:00 Temperature Pulse Rate 94 92 Respiratory Rate Blood Pressure Pulse Oximetry 99 Oxygen Delivery Room Air 12/17/22 16:00 12/17/22 16:00 12/17/22 16:00 Temperature 98.2 F Pulse Rate 88 86 Respiratory Rate 24 H Blood Pressure 127/79 Pulse Oximetry 98 97 Oxygen Delivery Room Air 12/17/22 20:00 12/18/22 06:00 12/18/22 08:49 Temperature 98.1 F Pulse Rate 78 82 Respiratory Rate 18 18 Blood Pressure 144/96 H Pulse Oximetry 96 97 94 Oxygen Delivery Room Air Room Air 12/18/22 08:20 Temperature Pulse Rate Respiratory Rate Blood Pressure Pulse Oximetry Oxygen Delivery Room Air Intake/Output Intake/Output: Intake & Output 12/15/22 12/16/22 12/17/22 12/18/22 23:59 23:59 23:59 23:59 Intake Total 3400 3122 120 Output Total 1350 Balance 3400 1772 120 Meds/Results Med
[2022-12-18] MEDS: ASPIRIN 81 MG CHEWABLE TABLET PO (11:30)
[2022-12-18 13:42] LABS: Hepatitis B Surface Antigen Negative (Negative)
[2022-12-18 13:47] LABS: HAV RESULT Negative (Negative); Hepatitis B Core IgM Result Negative (Negative)
[2022-12-18 13:59] LABS: Hepatitis C Virus Antibody Negative (Negative)
[2022-12-18] MEDS: ACETAMINOPHEN 325 MG TABLET 650 MG PO (14:53)
[2022-12-19] VITALS (7 sets, daily range): BP systolic 116–145; BP diastolic 72–89; PULSE 69–95; RESP 14–22; TEMP 36.5–38.3; O2SAT 92–96
[2022-12-19] MEDS: ACETAMINOPHEN 325 MG TABLET 650 MG PO ×3 (05:59→22:15)
[2022-12-19 07:32] LABS: Estimated CRCL calculation 76 ml/min; Estimated Glomerular Filt Rate > 60
[2022-12-19 08:00] LABS: Vancomycin Trough 6.6 ug/mL (10.0-20.0)
[2022-12-19 09:44] LABS: Hematocrit 43.5 % (42.0-52.0); Hemoglobin 12.8 g/dL (14.0-18.0); Immature Platelet Fraction Pct 8.1 % (0.9-11.2); Mean Corpuscular HGB Conc 29.4 g/dl (32-36); Mean Corpuscular Hemoglobin 19.9 pg (26-34); Mean Corpuscular Volume 67.7 fl (80-100); Platelet Count Result 980 k/mm3 (150-375); Red Blood Count 6.43 M/mm3 (4.6-6.20); Red Cell Distribution Width 33.1 % (11.5-14.5)
[2022-12-19] MEDS: ASPIRIN 81 MG CHEWABLE TABLET PO (09:50)
[2022-12-19] MEDS: atenoloL 50 MG TABLET PO (09:50)
[2022-12-19 09:51] LABS: Anion Gap 3 mmol/L (8-16); Blood Urea Nitrogen 9 mg/dL (9-20); Calcium 7.9 mg/dL (8.4-10.2); Carbon Dioxide 25 mmol/L (22-30); Chloride 103 mmol/L (98-107); Estimated CRCL calculation 76 ml/min; Estimated Glomerular Filt Rate > 60; Glucose 96 mg/dL (65-110); Potassium 3.4 mmol/L (3.4-5.0); Sodium 131 mmol/L (137-145)
[2022-12-19] MEDS: HYDROXYUREA (*CHEMO) 500 MG CAPSULE PO (09:54)
[2022-12-19] MEDS: ENALAPRIL MALEATE 10 MG TABLET PO (09:54)
[2022-12-19] MEDS: hydroCHLOROthiazide 25 MG TABLET PO (09:54)
[2022-12-19 10:12] LABS: Band Neutrophils Percent 13 % (0-6); Large Platelets Present; Lymphocytes Absolute Manual 0.84 K/mm3 (1.1-4.5); Monocytes Absolute Manual 1.47 K/mm3 (0.1-0.90); Monocytes Percent Manual 7 % (3-9); Neutrophils Absolute Manual 18.69 K/mm3 (1.3-6.7); Neutrophils Percent Manual 76 % (46-73); Ovalocytes 2+ (NORMAL); Platelet Estimate Increased (Adequate); Schistocytes Rare (NORMAL); Total Cells Counted 100
[2022-12-19 10:13] LABS: Anisocytosis 2+ (NORMAL); Macrocytosis 1+ (NORMAL); Microcytosis 1+ (NORMAL); Target Cells 1+ (NORMAL); Tear Drop Cells 1+ (NORMAL)
--- NOTE | 2022-12-19 10:50 | PM.IMPN ---
Progress Note: A&P Assessment and Plan (1) Sepsis: Code(s): A41.9 - Sepsis, unspecified organism Status: Acute Assessment and Plan: Cultures pending. Continue IV antibiotics. (2) Pneumonia: Code(s): J18.9 - Pneumonia, unspecified organism Status: Acute Assessment and Plan: Symptoms improved. Currently on cefepime, azithromycin, vancomycin. Fever with chills yesterday. Re-cultured. (3) Polycythemia vera: Code(s): D45 - Polycythemia vera Status: Acute Assessment and Plan: Continue hydroxyurea (4) Thrombocytosis: Code(s): D75.839 - Thrombocytosis, unspecified Status: Acute Assessment and Plan: Continue hydroxyurea. Platelet count improved (5) Abnormal computed tomography of abdomen and pelvis: Code(s): R93.5 - Abnormal findings on diagnostic imaging of other abdominal regions, including retroperitoneum Status: Acute Assessment and Plan: CT shows multiple hypoattenuating lesions of the spleen with a broad differential diagnosis to include infarcts (may very well be a chronic finding given benign abdominal exam), cysts, hemangiomas, hamartomas, infiltrative process, and less likely abscesses. Given fever yesterday with significant chills. Will get CT chest abdomen pelvis again. (6) Abnormal coagulation profile: Code(s): R79.1 - Abnormal coagulation profile Status: Acute Assessment and Plan: LFTs elevated as well. Repeat in a.m. (7) Hyponatremia: Code(s): E87.1 - Hypo-osmolality and hyponatremia Status: Acute Assessment and Plan: Asymptomatic, monitor (8) Dehydration: Code(s): E86.0 - Dehydration Status: Acute Assessment and Plan: Resolved (9) Transaminitis: Code(s): R74.01 - Elevation of levels of liver transaminase levels Status: Acute Assessment and Plan: Check hepatitis panel and monitor LFTs (10) Hypertension: Code(s): I10 - Essential (primary) hypertension Status: Chronic Assessment and Plan: Monitor Subjective Date/time seen: 12/19/22 10:50 Fever with chills yesterday. Despite being on antibiotics. Re-cultured Today he is feeling better. Exam Narrative: General: Moderately ill-appearing gentleman in the semi-Rivero position in bed. Weight: 107.1 kg. BMI: 37.0. HEENT: Normocephalic, atraumatic. PERRL, EOMI. Sclera anicteric. Tacky mucous membranes. Neck: Supple. No lymphadenopathy. No nuchal rigidity. Respiratory: Respirations are nonlabored and he is speaking in full sentences. Coarse lung sounds at the bases. Cardiovascular: Regular rate and rhythm with S1-S2. No significant murmur. Gastrointestinal: Abdomen is soft, nontender, and nondistended with positive bowel sounds. No guarding or rebound tenderness. Skin: Warm and dry. Small amount of sweat at the brow. Extremities: No cyanosis, clubbing, or edema. Radial and pedal pulses intact. Neurological: Alert and oriented. Cranial nerves 2-12 are grossly intact. No gross focal deficits to casual conversation. Psychiatric: Pleasant and cooperative with normal mood and affect. Judgment and insight intact. Objective Data Vital Signs Vital Signs: Vital Signs - 24 hr 12/18/22 14:00 12/18/22 14:53 12/18/22 14:25 Temperature 97.3 F L 103.1 F H 98.7 F Pulse Rate 85 115 H Respiratory Rate 16 32 H Blood Pressure 131/81 182/137 H Pulse Oximetry 97 95 Oxygen Delivery 12/18/22 14:40 12/18/22 16:10 12/18/22 14:53 Temperature 99.8 F H 101.2 F H 103.1 F H Pulse Rate 120 H 125 H 129 H Respiratory Rate 28 H 22 H 24 H Blood Pressure 179/90 H 120/81 120/73 Pulse Oximetry 95 95 97 Oxygen Delivery 12/18/22 17:21 12/18/22 17:28 12/18/22 15:53 Temperature 102.6 F H 101.1 F H 101.2 F H Pulse Rate 122 H Respiratory Rate 20 Blood Pressure 119/67 Pulse Oximetry 93 Oxygen Delivery 12/18/22 1
--- NOTE | 2022-12-19 21:06 | PC.NURSE ---
Spoke to [facility] transfer center about patient transfer to [place] for higher level of care. Currently still no beds available and average wait time is one week per strategic partnership representative. Updated on pt's current status and most recent set of vital signs.
[2022-12-20] VITALS (11 sets, daily range): BP systolic 127–137; BP diastolic 77–92; PULSE 73–83; RESP 16–18; TEMP 36.5–39.6; O2SAT 93–95
[2022-12-20] MEDS: IBUPROFEN 400 MG TABLET PO (00:32)
[2022-12-20 05:18] LABS: Pneumococcal Antigen Urine Not Detected (Not Detected)
--- NOTE | 2022-12-20 08:05 | PM.IMPN ---
Progress Note: A&P Assessment and Plan (1) Sepsis: Code(s): A41.9 - Sepsis, unspecified organism Status: Acute Assessment and Plan: Cultures pending. Continue IV antibiotics. (2) Pneumonia: Code(s): J18.9 - Pneumonia, unspecified organism Status: Acute Assessment and Plan: Symptoms improved. Currently on cefepime, azithromycin, vancomycin. Fever with chills persists. Re-cultured no growth so far change to vancomycin and zosyn to cover anaerobic infection (3) Polycythemia vera: Code(s): D45 - Polycythemia vera Status: Acute Assessment and Plan: Continue hydroxyurea (4) Thrombocytosis: Code(s): D75.839 - Thrombocytosis, unspecified Status: Acute Assessment and Plan: Continue hydroxyurea. Platelet count improved (5) Abnormal computed tomography of abdomen and pelvis: Code(s): R93.5 - Abnormal findings on diagnostic imaging of other abdominal regions, including retroperitoneum Status: Acute Assessment and Plan: CT shows multiple hypoattenuating lesions of the spleen with a broad differential diagnosis to include infarcts (may very well be a chronic finding given benign abdominal exam), cysts, hemangiomas, hamartomas, infiltrative process, and less likely abscesses. Given fever yesterday with significant chills. repeated CT chest abdomen pelvis again on 12/19 ?Innumerable small nodules scattered throughout all lobes of the lungs, likely infectious. Metastatic disease is considered less likely in the absence of known malignancy. 2. Small pleural effusions. 3. Splenomegaly with stable fluid attenuation lesions of the spleen, (6) Abnormal coagulation profile: Code(s): R79.1 - Abnormal coagulation profile Status: Acute Assessment and Plan: LFTs elevated as well. Repeat in a.m. (7) Hyponatremia: Code(s): E87.1 - Hypo-osmolality and hyponatremia Status: Acute Assessment and Plan: Asymptomatic, monitor (8) Dehydration: Code(s): E86.0 - Dehydration Status: Acute Assessment and Plan: Resolved (9) Transaminitis: Code(s): R74.01 - Elevation of levels of liver transaminase levels Status: Acute Assessment and Plan: Check hepatitis panel and monitor LFTs (10) Hypertension: Code(s): I10 - Essential (primary) hypertension Status: Chronic Assessment and Plan: Monitor Subjective Date/time seen: 12/20/22 08:05 Review of Systems Review of Systems: Saw examined patient, had a fever 100.6 in the night, blood culture no growth so far. Patient denies cough, chest pain, shortness breast, abdomen pain, nausea vomiting diarrhea dysuria All systems reviewed & are unremarkable except as noted in HPI and below Exam Narrative: General: Moderately ill-appearing gentleman in the semi-Rivero position in bed. Weight: 107.1 kg. BMI: 37.0. HEENT: Normocephalic, atraumatic. PERRL, EOMI. Sclera anicteric. Tacky mucous membranes. Neck: Supple. No lymphadenopathy. No nuchal rigidity. Respiratory: Respirations are nonlabored and he is speaking in full sentences. Coarse lung sounds at the bases. Cardiovascular: Regular rate and rhythm with S1-S2. No significant murmur. Gastrointestinal: Abdomen is soft, nontender, and nondistended with positive bowel sounds. No guarding or rebound tenderness. Skin: Warm and dry. Small amount of sweat at the brow. Extremities: No cyanosis, clubbing, or edema. Radial and pedal pulses intact. Neurological: Alert and oriented. Cranial nerves 2-12 are grossly intact. No gross focal deficits to casual conversation. Psychiatric: Pleasant and cooperative with normal mood and affect. Judgment and insight intact. Objective Data Vital Signs Vital Signs: Vital Signs - 24 hr 12/19/22 09:50 12/19/22 09:45 12/19/22 14:00 Temperature 97.7 F Pulse Rate 87 69 Respiratory Rate 22 H
[2022-12-20] MEDS: atenoloL 50 MG TABLET PO (08:15)
[2022-12-20] MEDS: hydroCHLOROthiazide 25 MG TABLET PO (08:15)
[2022-12-20] MEDS: ASPIRIN 81 MG CHEWABLE TABLET PO (08:15)
[2022-12-20] MEDS: ENALAPRIL MALEATE 10 MG TABLET PO (08:15)
[2022-12-20] MEDS: HYDROXYUREA (*CHEMO) 500 MG CAPSULE PO (08:15)
[2022-12-20 08:49] LABS: Vancomycin Trough 15.8 ug/mL (10.0-20.0)
[2022-12-20 09:19] LABS: Anion Gap 5 mmol/L (8-16); Blood Urea Nitrogen 8 mg/dL (9-20); Calcium 8.3 mg/dL (8.4-10.2); Carbon Dioxide 27 mmol/L (22-30); Chloride 100 mmol/L (98-107); Estimated CRCL calculation 83 ml/min; Estimated Glomerular Filt Rate > 60; Glucose 111 mg/dL (65-110); Potassium 3.3 mmol/L (3.4-5.0); Sodium 132 mmol/L (137-145)
[2022-12-20 09:21] LABS: Hematocrit 46.6 % (42.0-52.0); Hemoglobin 13.8 g/dL (14.0-18.0); Mean Corpuscular HGB Conc 29.6 g/dl (32-36); Mean Corpuscular Hemoglobin 19.9 pg (26-34); Mean Corpuscular Volume 67.3 fl (80-100); Platelet Count Result 951 k/mm3 (150-375); Red Blood Count 6.92 M/mm3 (4.6-6.20); Red Cell Distribution Width 33.5 % (11.5-14.5); White Blood Count 24.3 K/mm3 (4.5-10.0)
--- NOTE | 2022-12-20 15:20 | PC.NURSE ---
On 12/20/22, the student, [Luis Antonio Chavez ], provided care and completed [facility] documentation on this patient. I have reviewed the student's documentation and agree with the findings.
[2022-12-20] MEDS: ACETAMINOPHEN 325 MG TABLET 650 MG PO (15:48)
--- NOTE | 2022-12-20 15:52 | PC.NURSE ---
Patient's IV is positional. Current IV is patent. Offered to put new IV in but patient refused.
[2022-12-20 17:59] LABS: Mycoplasma IgM Antibody Titer 344 U/mL (<770)
[2022-12-20 20:30] LABS: Osmolality, Urine 576 mOsm/kg (50-1200)
[2022-12-21] VITALS (7 sets, daily range): BP systolic 106–126; BP diastolic 67–84; PULSE 72–92; RESP 14–18; TEMP 36.2–38.8; O2SAT 91–95
[2022-12-21 08:16] LABS: Hemoglobin 13.4 g/dL (14.0-18.0); Immature Platelet Fraction Pct 9.1 % (0.9-11.2); Mean Corpuscular HGB Conc 30.5 g/dl (32-36); Mean Corpuscular Hemoglobin 20.3 pg (26-34); Mean Corpuscular Volume 66.7 fl (80-100); Platelet Count Result 836 k/mm3 (150-375); Red Cell Distribution Width 33.4 % (11.5-14.5); White Blood Count 20.8 K/mm3 (4.5-10.0)
[2022-12-21 09:08] LABS: Alanine Aminotransferase 93 U/L (6-50); Albumin Level 3.2 g/dL (3.5-5.1); Alkaline Phosphatase 383 U/L (38-126); Anion Gap 5 mmol/L (8-16); Aspartate Amino Transferase 130 U/L (17-59); Bilirubin,Total 2.6 mg/dL (0.2-1.3); Blood Urea Nitrogen 8 mg/dL (9-20); Calcium 7.7 mg/dL (8.4-10.2); Carbon Dioxide 29 mmol/L (22-30); Chloride 100 mmol/L (98-107); Estimated CRCL calculation 70 ml/min; Estimated Glomerular Filt Rate > 60; Glucose 101 mg/dL (65-110); Potassium 3.3 mmol/L (3.4-5.0); Sodium 134 mmol/L (137-145)
[2022-12-21] MEDS: HYDROXYUREA (*CHEMO) 500 MG CAPSULE PO (09:10)
[2022-12-21] MEDS: hydroCHLOROthiazide 25 MG TABLET PO (09:10)
[2022-12-21] MEDS: atenoloL 50 MG TABLET PO (09:10)
[2022-12-21] MEDS: ENALAPRIL MALEATE 10 MG TABLET PO (09:10)
[2022-12-21] MEDS: ASPIRIN 81 MG CHEWABLE TABLET PO (09:10)
--- NOTE | 2022-12-21 16:42 | PM.IMPN ---
Progress Note: A&P Assessment and Plan (1) Sepsis: Code(s): A41.9 - Sepsis, unspecified organism Status: Acute Assessment and Plan: Cultures pending. Continue IV antibiotics. (2) Pneumonia: Code(s): J18.9 - Pneumonia, unspecified organism Status: Acute Assessment and Plan: Symptoms improved. Received cefepime, azithromycin, vancomycin. Fever with chills persists. Re-cultured no growth so far change to vancomycin and zosyn to cover anaerobic infection 12/20 Leukocytosis is trending down (3) Polycythemia vera: Code(s): D45 - Polycythemia vera Status: Acute Assessment and Plan: Continue hydroxyurea (4) Thrombocytosis: Code(s): D75.839 - Thrombocytosis, unspecified Status: Acute Assessment and Plan: Continue hydroxyurea. Platelet count improved (5) Abnormal computed tomography of abdomen and pelvis: Code(s): R93.5 - Abnormal findings on diagnostic imaging of other abdominal regions, including retroperitoneum Status: Acute Assessment and Plan: CT shows multiple hypoattenuating lesions of the spleen with a broad differential diagnosis to include infarcts (may very well be a chronic finding given benign abdominal exam), cysts, hemangiomas, hamartomas, infiltrative process, and less likely abscesses. Given fever yesterday with significant chills. repeated CT chest abdomen pelvis again on 12/19 ?Innumerable small nodules scattered throughout all lobes of the lungs, likely infectious. Metastatic disease is considered less likely in the absence of known malignancy. 2. Small pleural effusions. 3. Splenomegaly with stable fluid attenuation lesions of the spleen, (6) Abnormal coagulation profile: Code(s): R79.1 - Abnormal coagulation profile Status: Acute Assessment and Plan: LFTs elevated as well. Repeat in a.m. (7) Hyponatremia: Code(s): E87.1 - Hypo-osmolality and hyponatremia Status: Acute Assessment and Plan: Asymptomatic, monitor (8) Dehydration: Code(s): E86.0 - Dehydration Status: Acute Assessment and Plan: Resolved (9) Transaminitis: Code(s): R74.01 - Elevation of levels of liver transaminase levels Status: Acute Assessment and Plan: Check hepatitis panel and monitor LFTs (10) Hypertension: Code(s): I10 - Essential (primary) hypertension Status: Chronic Assessment and Plan: Monitor Subjective Date/time seen: 12/21/22 16:42 Saw on exam patient today. Patient feels better, appetite is improving. Denies chest pain, abdominal pain, nausea vomiting Patient is afebrile, leukocytosis is improving Exam Narrative: General: Moderately ill-appearing gentleman in the semi-Rivero position in bed. Weight: 107.1 kg. BMI: 37.0. HEENT: Normocephalic, atraumatic. PERRL, EOMI. Sclera anicteric. Tacky mucous membranes. Neck: Supple. No lymphadenopathy. No nuchal rigidity. Respiratory: Respirations are nonlabored and he is speaking in full sentences. Coarse lung sounds at the bases. Cardiovascular: Regular rate and rhythm with S1-S2. No significant murmur. Gastrointestinal: Abdomen is soft, nontender, and nondistended with positive bowel sounds. No guarding or rebound tenderness. Skin: Warm and dry. Small amount of sweat at the brow. Extremities: No cyanosis, clubbing, or edema. Radial and pedal pulses intact. Neurological: Alert and oriented. Cranial nerves 2-12 are grossly intact. No gross focal deficits to casual conversation. Psychiatric: Pleasant and cooperative with normal mood and affect. Judgment and insight intact. Objective Data Vital Signs Vital Signs: Vital Signs - 24 hr 12/20/22 16:58 12/20/22 17:23 12/20/22 18:43 Temperature 101.1 F H 99.8 F H 97.7 F Pulse Rate Respiratory Rate Blood Pressure Pulse Oximetry Oxygen Delivery 12/20/22 21:02 12/20/22 20:0
[2022-12-21] MEDS: ACETAMINOPHEN 325 MG TABLET 650 MG PO (18:12)
[2022-12-22 05:24] VITALS: BP 121/80; PULSE 85; RESP 16; TEMP 36.9; O2SAT 92
[2022-12-22 07:18] LABS: Legionella pneumophila Ag Ur Not Detected (Not Detected)
[2022-12-22 08:10] VITALS: PULSE 85
[2022-12-22] MEDS: atenoloL 50 MG TABLET PO (08:10)
[2022-12-22] MEDS: ASPIRIN 81 MG CHEWABLE TABLET PO (08:10)
[2022-12-22] MEDS: ENALAPRIL MALEATE 10 MG TABLET PO (08:11)
[2022-12-22] MEDS: hydroCHLOROthiazide 25 MG TABLET PO (08:11)
[2022-12-22] MEDS: HYDROXYUREA (*CHEMO) 500 MG CAPSULE PO (08:11)
[2022-12-22 08:19] LABS: Hematocrit 44.1 % (42.0-52.0); Hemoglobin 13.1 g/dL (14.0-18.0); Immature Platelet Fraction Pct 10.1 % (0.9-11.2); Mean Corpuscular HGB Conc 29.7 g/dl (32-36); Mean Corpuscular Hemoglobin 20.1 pg (26-34); Mean Corpuscular Volume 67.7 fl (80-100); Platelet Count Result 723 k/mm3 (150-375); Red Blood Count 6.51 M/mm3 (4.6-6.20); Red Cell Distribution Width 33.2 % (11.5-14.5); White Blood Count 18.4 K/mm3 (4.5-10.0)
[2022-12-22 08:40] LABS: Anion Gap 4 mmol/L (8-16); Blood Urea Nitrogen 9 mg/dL (9-20); Calcium 8.1 mg/dL (8.4-10.2); Carbon Dioxide 30 mmol/L (22-30); Chloride 96 mmol/L (98-107); Estimated CRCL calculation 69 ml/min; Estimated Glomerular Filt Rate > 60; Glucose 126 mg/dL (65-110); Sodium 130 mmol/L (137-145)
[2022-12-22 14:00] VITALS: BP 132/90; PULSE 79; RESP 16; TEMP 37.2; O2SAT 96
--- NOTE | 2022-12-22 14:07 | PM.IMPN ---
Progress Note: A&P Assessment and Plan (1) Sepsis: Code(s): A41.9 - Sepsis, unspecified organism Status: Acute Assessment and Plan: Cultures pending. Continue IV antibiotics. (2) Pneumonia: Code(s): J18.9 - Pneumonia, unspecified organism Status: Acute Assessment and Plan: Symptoms improved. Received cefepime, azithromycin, vancomycin. Fever with chills persists. Re-cultured no growth so far change to vancomycin and zosyn to cover anaerobic infection 12/20 Leukocytosis is trending down (3) Polycythemia vera: Code(s): D45 - Polycythemia vera Status: Acute Assessment and Plan: Continue hydroxyurea (4) Thrombocytosis: Code(s): D75.839 - Thrombocytosis, unspecified Status: Acute Assessment and Plan: Continue hydroxyurea. Platelet count improved (5) Abnormal computed tomography of abdomen and pelvis: Code(s): R93.5 - Abnormal findings on diagnostic imaging of other abdominal regions, including retroperitoneum Status: Acute Assessment and Plan: CT shows multiple hypoattenuating lesions of the spleen with a broad differential diagnosis to include infarcts (may very well be a chronic finding given benign abdominal exam), cysts, hemangiomas, hamartomas, infiltrative process, and less likely abscesses. Given fever yesterday with significant chills. repeated CT chest abdomen pelvis again on 12/19 ?Innumerable small nodules scattered throughout all lobes of the lungs, likely infectious. Metastatic disease is considered less likely in the absence of known malignancy. 2. Small pleural effusions. 3. Splenomegaly with stable fluid attenuation lesions of the spleen, (6) Abnormal coagulation profile: Code(s): R79.1 - Abnormal coagulation profile Status: Acute Assessment and Plan: LFTs elevated as well. Repeat in a.m. (7) Hyponatremia: Code(s): E87.1 - Hypo-osmolality and hyponatremia Status: Acute Assessment and Plan: Asymptomatic, monitor Repeated the sodium chloride 2 g b.i.d. p.o. (8) Dehydration: Code(s): E86.0 - Dehydration Status: Acute Assessment and Plan: Resolved (9) Transaminitis: Code(s): R74.01 - Elevation of levels of liver transaminase levels Status: Acute Assessment and Plan: Check hepatitis panel and monitor LFTs (10) Hypertension: Code(s): I10 - Essential (primary) hypertension Status: Chronic Assessment and Plan: Monitor (11) Hypokalemia: Code(s): E87.6 - Hypokalemia Status: Acute Assessment and Plan: Repeat visit potassium chloride 40 meq once and 20 mEq b.i.d. p.o. Subjective Date/time seen: 12/22/22 14:07 Saw and examined patient today. Patient feels better, appetite is improving. Patient is afebrile overnight, leukocytosis is improving. Patient has hyponatremia hypokalemia. Patient denies nausea vomiting diarrhea Review of Systems Review of Systems: All systems reviewed & are unremarkable except as noted in HPI and below Exam Narrative: General: Moderately ill-appearing gentleman in the semi-Rivero position in bed. Weight: 107.1 kg. BMI: 37.0. HEENT: Normocephalic, atraumatic. PERRL, EOMI. Sclera anicteric. Tacky mucous membranes. Neck: Supple. No lymphadenopathy. No nuchal rigidity. Respiratory: Respirations are nonlabored and he is speaking in full sentences. Coarse lung sounds at the bases. Cardiovascular: Regular rate and rhythm with S1-S2. No significant murmur. Gastrointestinal: Abdomen is soft, nontender, and nondistended with positive bowel sounds. No guarding or rebound tenderness. Skin: Warm and dry. Small amount of sweat at the brow. Extremities: No cyanosis, clubbing, or edema. Radial and pedal pulses intact. Neurological: Alert and oriented. Cranial nerves 2-12 are grossly intact. No gross focal deficits to casual conversation. Psych
[2022-12-22] MEDS: POTASSIUM CHLORIDE 20 MEQ PACKET (FOR LIQUID) 40 MEQ PO (15:29)
[2022-12-22] MEDS: ACETAMINOPHEN 325 MG TABLET 650 MG PO (15:35)
[2022-12-22] MEDS: POTASSIUM CHLORIDE 20 MEQ PACKET (FOR LIQUID) PO (17:33)
[2022-12-22] MEDS: SODIUM CHLORIDE 1 GM TABLET 2 GM PO (17:33)
[2022-12-22 19:54] VITALS: BP 114/79; PULSE 80; RESP 16; TEMP 36.7; O2SAT 91
[2022-12-23 05:54] LABS: Hematocrit 43.9 % (42.0-52.0); Hemoglobin 12.9 g/dL (14.0-18.0); Immature Platelet Fraction Pct 11.4 % (0.9-11.2); Mean Corpuscular HGB Conc 29.4 g/dl (32-36); Mean Corpuscular Volume 68.2 fl (80-100); Platelet Count Result 672 k/mm3 (150-375); Red Blood Count 6.44 M/mm3 (4.6-6.20); Red Cell Distribution Width 33.1 % (11.5-14.5); White Blood Count 21.1 K/mm3 (4.5-10.0)
[2022-12-23 06:00] VITALS: BP 111/74; PULSE 70; RESP 18; TEMP 36.3; O2SAT 92
[2022-12-23 06:06] LABS: Anion Gap 4 mmol/L (8-16); Blood Urea Nitrogen 10 mg/dL (9-20); Carbon Dioxide 29 mmol/L (22-30); Chloride 97 mmol/L (98-107); Estimated CRCL calculation 69 ml/min; Estimated Glomerular Filt Rate > 60; Glucose 93 mg/dL (65-110); Potassium 3.4 mmol/L (3.4-5.0); Sodium 130 mmol/L (137-145)
[2022-12-23 06:34] LABS: Vancomycin Trough 13.2 ug/mL (10.0-20.0)
[2022-12-23] MEDS: SODIUM CHLORIDE 1 GM TABLET 2 GM PO ×2 (08:34→17:00)
[2022-12-23] MEDS: POTASSIUM CHLORIDE 20 MEQ PACKET (FOR LIQUID) PO ×2 (08:34→16:42)
[2022-12-23 08:35] VITALS: PULSE 75
[2022-12-23] MEDS: ASPIRIN 81 MG CHEWABLE TABLET PO (08:35)
[2022-12-23] MEDS: ENALAPRIL MALEATE 10 MG TABLET PO (08:35)
[2022-12-23] MEDS: atenoloL 50 MG TABLET PO (08:35)
[2022-12-23] MEDS: hydroCHLOROthiazide 25 MG TABLET PO (08:35)
[2022-12-23] MEDS: HYDROXYUREA (*CHEMO) 500 MG CAPSULE PO (08:36)
--- NOTE | 2022-12-23 13:19 | PM.IMPN ---
Progress Note: A&P Assessment and Plan (1) Sepsis: Code(s): A41.9 - Sepsis, unspecified organism Status: Acute Assessment and Plan: Cultures pending. Continue IV antibiotics. (2) Pneumonia: Code(s): J18.9 - Pneumonia, unspecified organism Status: Acute Assessment and Plan: Symptoms improved. Received cefepime, azithromycin, vancomycin. Fever with chills persists. Re-cultured no growth so far change to vancomycin and zosyn to cover anaerobic infection 12/20 Leukocytosis is trending down Afebrile 24 hours (3) Polycythemia vera: Code(s): D45 - Polycythemia vera Status: Acute Assessment and Plan: Continue hydroxyurea (4) Thrombocytosis: Code(s): D75.839 - Thrombocytosis, unspecified Status: Acute Assessment and Plan: Continue hydroxyurea. Platelet count improved (5) Abnormal computed tomography of abdomen and pelvis: Code(s): R93.5 - Abnormal findings on diagnostic imaging of other abdominal regions, including retroperitoneum Status: Acute Assessment and Plan: CT shows multiple hypoattenuating lesions of the spleen with a broad differential diagnosis to include infarcts (may very well be a chronic finding given benign abdominal exam), cysts, hemangiomas, hamartomas, infiltrative process, and less likely abscesses. Given fever yesterday with significant chills. repeated CT chest abdomen pelvis again on 12/19 ?Innumerable small nodules scattered throughout all lobes of the lungs, likely infectious. Metastatic disease is considered less likely in the absence of known malignancy. 2. Small pleural effusions. 3. Splenomegaly with stable fluid attenuation lesions of the spleen, (6) Abnormal coagulation profile: Code(s): R79.1 - Abnormal coagulation profile Status: Acute Assessment and Plan: LFTs elevated as well. Repeat in a.m. (7) Hyponatremia: Code(s): E87.1 - Hypo-osmolality and hyponatremia Status: Acute Assessment and Plan: Asymptomatic, monitor Repeated the sodium chloride 2 g b.i.d. p.o. (8) Dehydration: Code(s): E86.0 - Dehydration Status: Acute Assessment and Plan: Resolved (9) Transaminitis: Code(s): R74.01 - Elevation of levels of liver transaminase levels Status: Acute Assessment and Plan: Check hepatitis panel and monitor LFTs (10) Hypertension: Code(s): I10 - Essential (primary) hypertension Status: Chronic Assessment and Plan: Monitor (11) Hypokalemia: Code(s): E87.6 - Hypokalemia Status: Acute Assessment and Plan: Repeat visit potassium chloride 40 meq once and 20 mEq b.i.d. p.o. Subjective Date/time seen: 12/23/22 13:19 Patient is feeling better. Patient has been afebrile more than 24 hours 3rd hepatitis protein, denies abdomen pain, chest pain, shortness of breath, diarrhea, dysuria Exam Narrative: General: Moderately ill-appearing gentleman in the semi-Rivero position in bed. Weight: 107.1 kg. BMI: 37.0. HEENT: Normocephalic, atraumatic. PERRL, EOMI. Sclera anicteric. Tacky mucous membranes. Neck: Supple. No lymphadenopathy. No nuchal rigidity. Respiratory: Respirations are nonlabored and he is speaking in full sentences. Coarse lung sounds at the bases. Cardiovascular: Regular rate and rhythm with S1-S2. No significant murmur. Gastrointestinal: Abdomen is soft, nontender, and nondistended with positive bowel sounds. No guarding or rebound tenderness. Skin: Warm and dry. Small amount of sweat at the brow. Extremities: No cyanosis, clubbing, or edema. Radial and pedal pulses intact. Neurological: Alert and oriented. Cranial nerves 2-12 are grossly intact. No gross focal deficits to casual conversation. Psychiatric: Pleasant and cooperative with normal mood and affect. Judgment and insight intact. Objective Data Vital Signs Vital Signs: Vital
[2022-12-23 14:00] VITALS: BP 140/79; PULSE 82; RESP 18; TEMP 37.9; O2SAT 94
[2022-12-23 16:41] VITALS: TEMP 37.9
[2022-12-23] MEDS: ACETAMINOPHEN 325 MG TABLET 650 MG PO (16:41)
[2022-12-23] MEDS: ONDANSETRON INJ 4 MG/2 ML VIAL IV PUSH ×2 (17:00→17:08)
[2022-12-23] MEDS: SALINE LOCK FLUSH 10 ML IV PUSH (21:56)
[2022-12-23 22:00] VITALS: BP 97/63; PULSE 76; RESP 18; TEMP 37; O2SAT 96
[2022-12-24 06:00] VITALS: BP 124/83; PULSE 78; RESP 18; TEMP 36; O2SAT 94
[2022-12-24] MEDS: SALINE LOCK FLUSH 10 ML IV PUSH ×3 (08:26→21:53)
[2022-12-24] MEDS: HYDROXYUREA (*CHEMO) 500 MG CAPSULE PO (08:27)
[2022-12-24 08:28] VITALS: PULSE 80
[2022-12-24] MEDS: ASPIRIN 81 MG CHEWABLE TABLET PO (08:28)
[2022-12-24] MEDS: hydroCHLOROthiazide 25 MG TABLET PO (08:28)
[2022-12-24] MEDS: atenoloL 50 MG TABLET PO (08:28)
[2022-12-24] MEDS: ENALAPRIL MALEATE 10 MG TABLET PO (08:29)
[2022-12-24 14:00] VITALS: BP 134/80; PULSE 80; RESP 19; TEMP 37.2; O2SAT 94
--- NOTE | 2022-12-24 14:09 | PM.IMPN ---
Progress Note: A&P Assessment and Plan (1) Sepsis: Code(s): A41.9 - Sepsis, unspecified organism Status: Acute Assessment and Plan: Cultures no growth. Continue IV antibiotics. (2) Pneumonia: Code(s): J18.9 - Pneumonia, unspecified organism Status: Acute Assessment and Plan: Symptoms improved. Received cefepime, azithromycin, vancomycin. Fever with chills persists. Re-cultured no growth so far change to vancomycin and zosyn to cover anaerobic infection 12/20 Leukocytosis is trending down Afebrile 24 hours (3) Polycythemia vera: Code(s): D45 - Polycythemia vera Status: Acute Assessment and Plan: Continue hydroxyurea (4) Thrombocytosis: Code(s): D75.839 - Thrombocytosis, unspecified Status: Acute Assessment and Plan: Continue hydroxyurea. Platelet count improved (5) Abnormal computed tomography of abdomen and pelvis: Code(s): R93.5 - Abnormal findings on diagnostic imaging of other abdominal regions, including retroperitoneum Status: Acute Assessment and Plan: CT shows multiple hypoattenuating lesions of the spleen with a broad differential diagnosis to include infarcts (may very well be a chronic finding given benign abdominal exam), cysts, hemangiomas, hamartomas, infiltrative process, and less likely abscesses. Given fever yesterday with significant chills. repeated CT chest abdomen pelvis again on 12/19 ?Innumerable small nodules scattered throughout all lobes of the lungs, likely infectious. Metastatic disease is considered less likely in the absence of known malignancy. 2. Small pleural effusions. 3. Splenomegaly with stable fluid attenuation lesions of the spleen, (6) Abnormal coagulation profile: Code(s): R79.1 - Abnormal coagulation profile Status: Acute Assessment and Plan: LFTs elevated as well. Repeat in a.m. (7) Hyponatremia: Code(s): E87.1 - Hypo-osmolality and hyponatremia Status: Acute Assessment and Plan: Asymptomatic, monitor Repeated the sodium chloride 2 g b.i.d. p.o. (8) Dehydration: Code(s): E86.0 - Dehydration Status: Acute Assessment and Plan: Resolved (9) Transaminitis: Code(s): R74.01 - Elevation of levels of liver transaminase levels Status: Acute Assessment and Plan: Check hepatitis panel and monitor LFTs (10) Hypertension: Code(s): I10 - Essential (primary) hypertension Status: Chronic Assessment and Plan: Monitor (11) Hypokalemia: Code(s): E87.6 - Hypokalemia Status: Acute Assessment and Plan: Repeat visit potassium chloride 40 meq once and 20 mEq b.i.d. p.o. Plan pt is accepted by [facility] and waiting for tansfer. patient and his wish to be transferred [facility] for further evaluation treatment tomorrow if there is no room available in the [facility] Subjective Date/time seen: 12/24/22 14:09 Interval history: Saw and eximined patient, patient feels better, appetite improving, afebrile, patient denies chest pain, shortness breast, cough, sputum pain, nausea vomiting diarrhea dysuria Review of Systems Review of Systems: All systems reviewed & are unremarkable except as noted in HPI and below Exam Narrative: General: Moderately ill-appearing gentleman in the semi-Rivero position in bed. Weight: 107.1 kg. BMI: 37.0. HEENT: Normocephalic, atraumatic. PERRL, EOMI. Sclera anicteric. Tacky mucous membranes. Neck: Supple. No lymphadenopathy. No nuchal rigidity. Respiratory: Respirations are nonlabored and he is speaking in full sentences. Coarse lung sounds at the bases. Cardiovascular: Regular rate and rhythm with S1-S2. No significant murmur. Gastrointestinal: Abdomen is soft, nontender, and nondistended with positive bowel sounds. No guarding or rebound tenderness. Skin: Warm and dry. Small amount of sweat at the brow. Extremities:
[2022-12-24] MEDS: ACETAMINOPHEN 325 MG TABLET 650 MG PO (16:24)
--- NOTE | 2022-12-24 19:48 | PC.NURSE ---
pt refused both doses PO potassium chloride BID, and sodium chloride tablets BID. Pt educated on risks of refusal and why the prescriptions were ordered. Pt encouraged to take medications. notified.
--- NOTE | 2022-12-24 19:51 | PC.NURSE ---
Pt and pt's requested CC reach out to [facility] tomorrow (12/25) for bed inquiry. MD documented request in report, RN notified PM RN and PM rn discharge.
[2022-12-24 20:53] LABS: Vancomycin Trough 19.8 ug/mL (10.0-20.0)
[2022-12-24 21:05] VITALS: BP 135/80; PULSE 86; RESP 16; TEMP 37.5; O2SAT 93
[2022-12-24] MEDS: SODIUM CHLORIDE 0.9% IV 100 ML 10 ML (21:29)
[2022-12-25 04:10] LABS: Potassium 3.5 mmol/L (3.4-5.0)
[2022-12-25 04:13] LABS: Estimated CRCL calculation 44 ml/min; Estimated Glomerular Filt Rate 44
[2022-12-25 04:48] VITALS: BP 111/70; PULSE 79; RESP 16; TEMP 37.1; O2SAT 94
[2022-12-25 08:30] LABS: Vancomycin Trough 22.5 ug/mL (10.0-20.0)
[2022-12-25] MEDS: POTASSIUM CHLORIDE 20 MEQ PACKET (FOR LIQUID) PO ×2 (09:08→16:39)
[2022-12-25] MEDS: HYDROXYUREA (*CHEMO) 500 MG CAPSULE PO (09:08)
[2022-12-25] MEDS: SODIUM CHLORIDE 1 GM TABLET 2 GM PO ×2 (09:08→16:40)
[2022-12-25] MEDS: hydroCHLOROthiazide 25 MG TABLET PO (09:08)
[2022-12-25] MEDS: atenoloL 50 MG TABLET PO (09:09)
[2022-12-25] MEDS: ASPIRIN 81 MG CHEWABLE TABLET PO (09:09)
[2022-12-25] MEDS: ENALAPRIL MALEATE 10 MG TABLET PO (09:09)
--- NOTE | 2022-12-25 10:43 | PCNFU ---
Nutrition Follow-Up Complete: Unintentional weight loss related to reduced appetite and intake as evidenced by pt report Goal:PO intake to continue 75% or greater for meals. Pt meeting goal, continue with current goal. Pt current nutrition is Regular, Ensure compact BID. Nutrition recommendation: continue with current plan of care. Last recorded weight is 102.5 kg - stable. Bowel Motility: +Bm 12/25 Labs Reviewed: Hb:12.9, NA:130, Cr:1.9 Meds Noted: HCTZ, zofran Skin: WNL Additional Notes: Pt continues on a regular diet, intake 50-100% of meals. Ensure compact in place. Agree with diet orders. Monitor intake, wt, labs. Follow up in 7 days.
[2022-12-25 11:26] LABS: Hematocrit 43.7 % (42.0-52.0); Immature Platelet Fraction Pct 11.1 % (0.9-11.2); Mean Corpuscular HGB Conc 29.7 g/dl (32-36); Mean Corpuscular Volume 70.5 fl (80-100); Platelet Count Result 666 k/mm3 (150-375); Red Cell Distribution Width 34.1 % (11.5-14.5); White Blood Count 22.7 K/mm3 (4.5-10.0)
[2022-12-25 14:00] VITALS: BP 107/71; PULSE 76; RESP 18; TEMP 36.8; O2SAT 97
--- NOTE | 2022-12-25 15:35 | PM.IMPN ---
Progress Note: A&P Assessment and Plan (1) Sepsis: Code(s): A41.9 - Sepsis, unspecified organism Status: Acute Assessment and Plan: Cultures no growth. Completed 8 days of Zosyn and Vanc WBC still elevated however could be Myeloproliferative disease however will rule out infection by changing repeatign CXR and procal, Stop Zosyn adn Vanc start Levaquin and flagyl monitor (2) Pneumonia: Code(s): J18.9 - Pneumonia, unspecified organism Status: Acute Assessment and Plan: Symptoms improved. Received cefepime, azithromycin, vancomycin. Fever with chills persists. Re-cultured no growth so far change to vancomycin and zosyn to cover anaerobic infection 12/20 Leukocytosis is trending down Afebrile 24 hours (3) Polycythemia vera: Code(s): D45 - Polycythemia vera Status: Acute Assessment and Plan: Continue hydroxyurea (4) Thrombocytosis: Code(s): D75.839 - Thrombocytosis, unspecified Status: Acute Assessment and Plan: Continue hydroxyurea. Platelet count improved (5) Abnormal computed tomography of abdomen and pelvis: Code(s): R93.5 - Abnormal findings on diagnostic imaging of other abdominal regions, including retroperitoneum Status: Acute Assessment and Plan: CT shows multiple hypoattenuating lesions of the spleen with a broad differential diagnosis to include infarcts (may very well be a chronic finding given benign abdominal exam), cysts, hemangiomas, hamartomas, infiltrative process, and less likely abscesses. Given fever yesterday with significant chills. repeated CT chest abdomen pelvis again on 12/19 ?Innumerable small nodules scattered throughout all lobes of the lungs, likely infectious. Metastatic disease is considered less likely in the absence of known malignancy. 2. Small pleural effusions. 3. Splenomegaly with stable fluid attenuation lesions of the spleen, (6) Abnormal coagulation profile: Code(s): R79.1 - Abnormal coagulation profile Status: Acute Assessment and Plan: LFTs elevated as well. Repeat in a.m. (7) Hyponatremia: Code(s): E87.1 - Hypo-osmolality and hyponatremia Status: Acute Assessment and Plan: Asymptomatic, monitor Repeated the sodium chloride 2 g b.i.d. p.o. (8) Dehydration: Code(s): E86.0 - Dehydration Status: Acute Assessment and Plan: Resolved (9) Transaminitis: Code(s): R74.01 - Elevation of levels of liver transaminase levels Status: Acute Assessment and Plan: Check hepatitis panel and monitor LFTs (10) Hypertension: Code(s): I10 - Essential (primary) hypertension Status: Chronic Assessment and Plan: Monitor (11) Hypokalemia: Code(s): E87.6 - Hypokalemia Status: Acute Assessment and Plan: Repeat visit potassium chloride 40 meq once and 20 mEq b.i.d. p.o. Plan pt is accepted by [facility] and waiting for transfer. patient and his wish to be transferred to [facility] for further evaluation treatment tomorrow if there is no room available in the [facility] I reviewed oncology evaluation that stated patient will continue Hydroxyurea and will follow up after discharge for continued f/u Subjective Date/time seen: 12/25/22 15:35 Interval history: Saw and eximined patient, patient feels better, appetite improving, afebrile, patient denies chest pain, shortness breast, cough, sputum pain, nausea vomiting diarrhea dysuria Creatinine elevated to 1.9, dicscussed with ID pharmacy noted patient has completed 8 days on Zosyn and Vancomycin still WBC still elevated. Thus, discontinued Zosyn and Vanc, Levaquin started. Repeat CXR and procal. Review of Systems Review of Systems: All systems reviewed & are unremarkable except as noted in HPI and below Exam Narrative: General: alert and oriented x 3 gentleman in the semi-Rivero position in bed. Weight: 1
[2022-12-25 17:21] LABS: Procalcitonin 0.8 ng/mL
[2022-12-25] MEDS: metroNIDAZOLE 250 MG TABLET 500 MG PO (20:40)
[2022-12-25] MEDS: HYDROcodone/acetaminophen (*CRX) 5-325 MG TABLET 1 TAB PO (21:35)
[2022-12-25 22:00] VITALS: BP 129/82; PULSE 88; RESP 18; TEMP 37.4; O2SAT 96
[2022-12-26 06:00] VITALS: BP 120/74; PULSE 76; RESP 16; TEMP 36.1; O2SAT 97
[2022-12-26] MEDS: metroNIDAZOLE 250 MG TABLET 500 MG PO ×3 (06:33→21:13)
[2022-12-26] MEDS: POTASSIUM CHLORIDE 20 MEQ PACKET (FOR LIQUID) PO (08:29)
[2022-12-26] MEDS: ASPIRIN 81 MG CHEWABLE TABLET PO (08:29)
[2022-12-26] MEDS: HYDROXYUREA (*CHEMO) 500 MG CAPSULE PO (08:29)
[2022-12-26] MEDS: hydroCHLOROthiazide 25 MG TABLET PO (08:29)
[2022-12-26] MEDS: atenoloL 50 MG TABLET PO (08:29)
[2022-12-26] MEDS: SODIUM CHLORIDE 1 GM TABLET 2 GM PO ×2 (08:29→15:59)
[2022-12-26] MEDS: ENALAPRIL MALEATE 10 MG TABLET PO (08:29)
[2022-12-26 11:45] LABS: Hematocrit 44.1 % (42.0-52.0); Hemoglobin 12.9 g/dL (14.0-18.0); Immature Platelet Fraction Pct 10.4 % (0.9-11.2); Mean Corpuscular HGB Conc 29.3 g/dl (32-36); Mean Corpuscular Volume 71.7 fl (80-100); Platelet Count Result 662 k/mm3 (150-375); Red Blood Count 6.15 M/mm3 (4.6-6.20); Red Cell Distribution Width 34.2 % (11.5-14.5); White Blood Count 19.8 K/mm3 (4.5-10.0)
[2022-12-26 11:50] LABS: Carbon Dioxide 27 mmol/L (22-30); Chloride 103 mmol/L (98-107); Potassium 4.2 mmol/L (3.4-5.0); Sodium 133 mmol/L (137-145)
[2022-12-26 11:51] LABS: Alanine Aminotransferase 95 U/L (6-50); Albumin Level 3.4 g/dL (3.5-5.1); Alkaline Phosphatase 329 U/L (38-126); Anion Gap 3 mmol/L (8-16); Aspartate Amino Transferase 55 U/L (17-59); Bilirubin,Total 1.5 mg/dL (0.2-1.3); Blood Urea Nitrogen 15 mg/dL (9-20); Calcium 8.4 mg/dL (8.4-10.2); Estimated CRCL calculation 52 ml/min; Estimated Glomerular Filt Rate 54; Glucose 109 mg/dL (65-110); Magnesium 2.3 mg/dL (1.6-2.3)
[2022-12-26 12:09] LABS: Band Neutrophils Percent 5 % (0-6); Eosinophils Absolute Manual 0.39 K/mm3 (0.02-0.5); Eosinophils Percent Manual 2 % (0-4); Lymphocytes Absolute Manual 1.58 K/mm3 (1.1-4.5); Monocytes Absolute Manual 2.97 K/mm3 (0.1-0.90); Monocytes Percent Manual 15 % (3-9); Neutrophils Absolute Manual 14.85 K/mm3 (1.3-6.7); Neutrophils Percent Manual 70 % (46-73); Platelet Estimate Increased (Adequate); Total Cells Counted 100
[2022-12-26 12:10] LABS: Anisocytosis 2+ (NORMAL); Hypochromasia 1+ (NORMAL); Macrocytosis 1+ (NORMAL); Microcytosis 1+ (NORMAL); Ovalocytes 2+ (NORMAL); Poikilocytosis 1+ (NORMAL)
[2022-12-26 12:11] LABS: Schistocytes Rare (NORMAL); Tear Drop Cells 1+ (NORMAL)
[2022-12-26 14:00] VITALS: BP 119/79; PULSE 80; RESP 16; TEMP 36.5; O2SAT 97
--- NOTE | 2022-12-26 14:09 | PM.IMPN ---
Progress Note: A&P Assessment and Plan (1) Hyponatremia: Code(s): E87.1 - Hypo-osmolality and hyponatremia Status: Acute (2) Abnormal coagulation profile: Code(s): R79.1 - Abnormal coagulation profile Status: Acute (3) Pneumonia: Code(s): J18.9 - Pneumonia, unspecified organism Status: Acute (4) Sepsis: Code(s): A41.9 - Sepsis, unspecified organism Status: Acute (5) Thrombocytosis: Code(s): D75.839 - Thrombocytosis, unspecified Status: Acute (6) Severe sepsis: Code(s): A41.9 - Sepsis, unspecified organism; R65.20 - Severe sepsis without septic shock Status: Acute (7) Community acquired pneumonia: Code(s): J18.9 - Pneumonia, unspecified organism Status: Acute Plan ?57-year-old male with polycythemia vera, thrombocytosis, and hypertension who presented to the ED from home for evaluation of fever and vomiting.He was negative for flu, RSV, and COVID. Chest x-ray shows mild congestive changes and possible aspiration or pneumonia. CT abdomen and pelvis showed patchy bilateral lower lobe and middle lobe nodule infiltrates and bilateral lower lobe focal areas of atelectasis or consolidation as well as will hypoattenuating lesions of the spleen with a differential diagnosis to include splenic infarcts, splenic cyst, abscesses, and others per radiologist report. 1)Sepsis: 2/2 PNA c/w Levofloxacin, Flagyl, Vanc Cultures negative till date Leucocytosis present 2)Thrombocytosis: c/w hydroxyurea Appreciate onc help 3)Hyponatremia: Improving 4)HTN: c/w Enalpril, Atenolol, HCTZ 5)Dry Eyes:Add artifical tears 6)DVT ppx: Heparin SQ 7)Code:Full 8)Dispo:pt is accepted by [facility] and waiting for transfer.? Time Spent With Patient Time with patient: 25 - 35 minutes Subjective Date/time seen: 12/26/22 14:09 Interval history: no acute events overnight [facility] transfer to [facility] [address] Review of Systems Review of Systems: All systems reviewed & are unremarkable except as noted in HPI and below Constitutional: Constitutional: Reports no additional constitutional complaints Eyes: Eyes: Reports no additional eye complaints ENT: Reports system reviewed and no additional complaints, except as documented Cardiovascular: Cardiovascular: Reports no additional cardiovascular complaints Respiratory: Respiratory: Reports no additional respiratory complaints Gastrointestinal: Gastrointestinal: Reports no additional gastrointestinal complaints Musculoskeletal: Musculoskeletal: Reports no additional musculoskeletal complaints Neurologic: Reports system reviewed and no additional complaints, except as documented Exam Narrative: General: alert and oriented x 3? HEENT:??Normocephalic, atraumatic.? PERRL, EOMI. Sclera anicteric. Neck:??Supple. Respiratory:?. Coarse lung sounds at the bases. Cardiovascular:??Regular rate and rhythm with S1-S2. No significant murmur. Gastrointestinal:??Abdomen is soft, nontender, and nondistended with positive bowel sounds. No guarding or rebound tenderness. Skin:??Warm and dry. . Extremities:??No edema. Neurological:??Alert and oriented.?No gross focal deficits to casual conversation. Psychiatric:??Pleasant and cooperative with normal mood and affect.? . Objective Data Vital Signs Vital Signs: Vital Signs - 24 hr 12/25/22 20:00 12/25/22 22:00 12/26/22 06:00 Temperature 99.4 F 96.9 F L Pulse Rate 88 76 Respiratory Rate 18 16 Blood Pressure 129/82 120/74 Pulse Oximetry 96 97 Oxygen Delivery Room Air 12/26/22 08:00 12/26/22 14:00 Temperature 97.7 F Pulse Rate 80 Respiratory Rate 16 Blood Pressure 119/79 Pulse Oximetry 97 Oxygen Delivery Room Air Intake/Output Intake/Output: Intake & Output 12/23/22 12/24/22 12/25/22 12/26/22 23:59 23:59 23:59 23:59 Intake Total 3060 2170 3030 1270 Output Total 250 350 900 Balance 2810 1820 3030 370 Meds/Results Medication
[2022-12-26] MEDS: ARTIFICIAL TEARS OPHTH SOLN 15 ML BOTTLE 1 DROP EACH EYE ×2 (16:00→21:13)
[2022-12-26] MEDS: SALINE LOCK FLUSH 10 ML IV PUSH ×2 (16:00→21:13)
[2022-12-26 20:00] VITALS: PULSE 86; RESP 18; O2SAT 96
[2022-12-26] MEDS: HEPARIN SODIUM 5,000 UNITS/ML VIAL 5000 UNITS SUB-Q (21:13)
[2022-12-26 21:38] VITALS: BP 141/93; PULSE 86; RESP 18; TEMP 36.8; O2SAT 96
[2022-12-27 04:42] VITALS: BP 126/76; PULSE 85; RESP 16; TEMP 36.3; O2SAT 95
[2022-12-27] MEDS: metroNIDAZOLE 250 MG TABLET 500 MG PO ×3 (05:45→20:33)
[2022-12-27] MEDS: HEPARIN SODIUM 5,000 UNITS/ML VIAL 5000 UNITS SUB-Q ×3 (05:45→20:33)
[2022-12-27] MEDS: SALINE LOCK FLUSH 10 ML IV PUSH ×3 (05:45→20:35)
[2022-12-27 07:30] LABS: Hemoglobin 13.2 g/dL (14.0-18.0); Immature Platelet Fraction Pct 10.6 % (0.9-11.2); Mean Corpuscular HGB Conc 29.3 g/dl (32-36); Mean Corpuscular Hemoglobin 21.2 pg (26-34); Mean Corpuscular Volume 72.2 fl (80-100); Platelet Count Result 642 k/mm3 (150-375); Red Blood Count 6.23 M/mm3 (4.6-6.20); Red Cell Distribution Width 34.7 % (11.5-14.5); White Blood Count 17.2 K/mm3 (4.5-10.0)
[2022-12-27 07:41] LABS: Anion Gap 5 mmol/L (8-16); Blood Urea Nitrogen 14 mg/dL (9-20); Calcium 8.4 mg/dL (8.4-10.2); Carbon Dioxide 27 mmol/L (22-30); Chloride 104 mmol/L (98-107); Estimated CRCL calculation 49 ml/min; Estimated Glomerular Filt Rate 50; Glucose 124 mg/dL (65-110); Potassium 3.9 mmol/L (3.4-5.0); Sodium 136 mmol/L (137-145)
[2022-12-27 08:29] LABS: Eosinophils Absolute Manual 0.17 K/mm3 (0.02-0.5); Eosinophils Percent Manual 1 % (0-4); Lymphocytes Absolute Manual 2.23 K/mm3 (1.1-4.5); Lymphocytes Percent Manual 13 % (18-44); Monocytes Absolute Manual 0.34 K/mm3 (0.1-0.90); Monocytes Percent Manual 2 % (3-9); Neutrophils Percent Manual 84 % (46-73); Total Cells Counted 100
[2022-12-27 08:30] LABS: Anisocytosis 3+ (NORMAL); Hypochromasia 1+ (NORMAL); Microcytosis 1+ (NORMAL); Platelet Estimate Increased (Adequate); Schistocytes None Seen (NORMAL)
[2022-12-27 08:31] LABS: Poikilocytosis 1+ (NORMAL)
[2022-12-27 08:40] VITALS: PULSE 80; RESP 16; O2SAT 95
[2022-12-27] MEDS: ARTIFICIAL TEARS OPHTH SOLN 15 ML BOTTLE 1 DROP EACH EYE ×4 (08:43→20:36)
[2022-12-27 08:44] VITALS: PULSE 80
[2022-12-27] MEDS: ASPIRIN 81 MG CHEWABLE TABLET PO (08:44)
[2022-12-27] MEDS: atenoloL 50 MG TABLET PO (08:44)
[2022-12-27] MEDS: hydroCHLOROthiazide 25 MG TABLET PO (08:44)
[2022-12-27] MEDS: ENALAPRIL MALEATE 10 MG TABLET PO (08:45)
[2022-12-27] MEDS: SODIUM CHLORIDE 1 GM TABLET 2 GM PO ×2 (08:45→17:21)
[2022-12-27] MEDS: HYDROXYUREA (*CHEMO) 500 MG CAPSULE PO (08:45)
--- NOTE | 2022-12-27 11:07 | PM.IMPN ---
Progress Note: A&P Assessment and Plan (1) Hyponatremia: Code(s): E87.1 - Hypo-osmolality and hyponatremia Status: Acute (2) Abnormal coagulation profile: Code(s): R79.1 - Abnormal coagulation profile Status: Acute (3) Pneumonia: Code(s): J18.9 - Pneumonia, unspecified organism Status: Acute (4) Sepsis: Code(s): A41.9 - Sepsis, unspecified organism Status: Acute (5) Thrombocytosis: Code(s): D75.839 - Thrombocytosis, unspecified Status: Acute (6) Severe sepsis: Code(s): A41.9 - Sepsis, unspecified organism; R65.20 - Severe sepsis without septic shock Status: Acute (7) Community acquired pneumonia: Code(s): J18.9 - Pneumonia, unspecified organism Status: Acute Plan ?57-year-old male with polycythemia vera, thrombocytosis, and hypertension who presented to the ED from home for evaluation of fever and vomiting.He was negative for flu, RSV, and COVID. Chest x-ray shows mild congestive changes and possible aspiration or pneumonia. CT abdomen and pelvis showed patchy bilateral lower lobe and middle lobe nodule infiltrates and bilateral lower lobe focal areas of atelectasis or consolidation as well as will hypoattenuating lesions of the spleen with a differential diagnosis to include splenic infarcts, splenic cyst, abscesses, and others per radiologist report. 1)Sepsis: 2/2 PNA c/w Levofloxacin, Flagyl, Vanc Cultures negative till date Leucocytosis present 2)Thrombocytosis: c/w hydroxyurea Appreciate onc help 3)Hyponatremia: Improving 4)HTN: c/w Enalpril, Atenolol, HCTZ 5)Dry Eyes:Add artifical tears 6)DVT ppx: Heparin SQ 7)Code:Full 8)Dispo:pt is accepted by [facility] and waiting for transfer.? Subjective Date/time seen: 12/27/22 11:07 No new complaints Exam Narrative: General: alert and oriented x 3? HEENT:??Normocephalic, atraumatic.? PERRL, EOMI. Sclera anicteric. Neck:??Supple. Respiratory:?. Coarse lung sounds at the bases. Cardiovascular:??Regular rate and rhythm with S1-S2. No significant murmur. Gastrointestinal:??Abdomen is soft, nontender, and nondistended with positive bowel sounds. No guarding or rebound tenderness. Skin:??Warm and dry. . Extremities:??No edema. Neurological:??Alert and oriented.?No gross focal deficits to casual conversation. Psychiatric:??Pleasant and cooperative with normal mood and affect.? . Objective Data Vital Signs Vital Signs: Vital Signs - 24 hr 12/26/22 14:00 12/26/22 21:38 12/26/22 20:00 Temperature 97.7 F 98.2 F Pulse Rate 80 86 86 Respiratory Rate 16 18 18 Blood Pressure 119/79 141/93 H Pulse Oximetry 97 96 96 Oxygen Delivery Room Air 12/27/22 04:42 12/27/22 08:44 Temperature 97.4 F L Pulse Rate 85 80 Respiratory Rate 16 Blood Pressure 126/76 Pulse Oximetry 95 Oxygen Delivery Intake/Output Intake/Output: Intake & Output 12/24/22 12/25/22 12/26/22 12/27/22 23:59 23:59 23:59 23:59 Intake Total 2170 3030 2510 360 Output Total 350 900 Balance 1820 3030 1610 360 Meds/Results Medications: Active Medications Generic Name Dose Route Start Last Admin Trade Name Freq PRN Reason Stop Dose Admin Acetaminophen 650 mg 12/16/22 23:30 12/24/22 16:24 Acetaminophen 325 Mg Tablet PO 650 mg Q6H PRN Administration Mild Pain (1-3) or Fever Artificial Tears 1 drop 12/26/22 17:00 12/27/22 08:43 Artificial Tears Ophth Soln 15 Ml Bottle EACH EYE 1 drop QID [facility] Administration Aspirin 81 mg 12/17/22 08:00 12/27/22 08:44 Aspirin 81 Mg Chewable Tablet PO 81 mg DAILY@0800 [facility] Administration Atenolol 50 mg 12/19/22 09:00 12/27/22 08:44 Atenolol 50 Mg Tablet PO 50 mg DAILY [facility] Administration Enalapril Maleate 10 mg 12/19/22 09:00 12/27/22 08:45 Enalapril Maleate 10 Mg Tablet PO 10 mg DAILY [facility] Administration Heparin Sodium (Porcine) 5,000 units 12/26/22 22:00 12/27/22 05:45 Heparin So
[2022-12-27 14:00] VITALS: BP 103/61; PULSE 75; RESP 17; TEMP 36.4; O2SAT 98
[2022-12-27 22:00] VITALS: BP 130/90; PULSE 84; RESP 17; TEMP 36.9; O2SAT 96
[2022-12-28] MEDS: SALINE LOCK FLUSH 10 ML IV PUSH ×3 (05:41→20:43)
[2022-12-28] MEDS: HEPARIN SODIUM 5,000 UNITS/ML VIAL 5000 UNITS SUB-Q ×3 (05:41→20:42)
[2022-12-28] MEDS: metroNIDAZOLE 250 MG TABLET 500 MG PO ×3 (05:41→20:42)
[2022-12-28 06:00] VITALS: BP 123/76; PULSE 74; RESP 16; TEMP 36.3; O2SAT 94
[2022-12-28] MEDS: ENALAPRIL MALEATE 10 MG TABLET PO (09:07)
[2022-12-28] MEDS: hydroCHLOROthiazide 25 MG TABLET PO (09:07)
[2022-12-28] MEDS: atenoloL 50 MG TABLET PO (09:07)
[2022-12-28] MEDS: HYDROXYUREA (*CHEMO) 500 MG CAPSULE PO (09:07)
[2022-12-28] MEDS: SODIUM CHLORIDE 1 GM TABLET 2 GM PO ×2 (09:07→17:42)
[2022-12-28] MEDS: ASPIRIN 81 MG CHEWABLE TABLET PO (09:07)
[2022-12-28] MEDS: ARTIFICIAL TEARS OPHTH SOLN 15 ML BOTTLE 1 DROP EACH EYE ×4 (09:08→20:44)
--- NOTE | 2022-12-28 11:08 | PM.IMPN ---
Progress Note: A&P Assessment and Plan (1) Hyponatremia: Code(s): E87.1 - Hypo-osmolality and hyponatremia Status: Acute (2) Abnormal coagulation profile: Code(s): R79.1 - Abnormal coagulation profile Status: Acute (3) Pneumonia: Code(s): J18.9 - Pneumonia, unspecified organism Status: Acute (4) Sepsis: Code(s): A41.9 - Sepsis, unspecified organism Status: Acute (5) Thrombocytosis: Code(s): D75.839 - Thrombocytosis, unspecified Status: Acute (6) Severe sepsis: Code(s): A41.9 - Sepsis, unspecified organism; R65.20 - Severe sepsis without septic shock Status: Acute (7) Community acquired pneumonia: Code(s): J18.9 - Pneumonia, unspecified organism Status: Acute Plan ?57-year-old male with polycythemia vera, thrombocytosis, and hypertension who presented to the ED from home for evaluation of fever and vomiting.He was negative for flu, RSV, and COVID. Chest x-ray shows mild congestive changes and possible aspiration or pneumonia. CT abdomen and pelvis showed patchy bilateral lower lobe and middle lobe nodule infiltrates and bilateral lower lobe focal areas of atelectasis or consolidation as well as will hypoattenuating lesions of the spleen with a differential diagnosis to include splenic infarcts, splenic cyst, abscesses, and others per radiologist report. 1)Sepsis: 2/2 PNA c/w Levofloxacin, Flagyl Cultures negative till date Leucocytosis present - however this could be related to his polycythemia. Will have Pulmonary evaluate the patient to decide whether an antibiotic should be continued. Clinically he is better. 2)Thrombocytosis/ Polycythemia: c/w hydroxyurea Appreciate onc help 3)Hyponatremia: Improving 4)HTN: c/w Enalpril, Atenolol, HCTZ 5)Dry Eyes:Add artifical tears 6)DVT ppx: Heparin SQ 7)Code:Full 8)Dispo:pt is accepted by [facility] and waiting for transfer.? Subjective Date/time seen: 12/28/22 11:08 No new complaints Exam Narrative: General: alert and oriented x 3? HEENT:??Normocephalic, atraumatic.? PERRL, EOMI. Sclera anicteric. Neck:??Supple. Respiratory:?. Coarse lung sounds at the bases. Cardiovascular:??Regular rate and rhythm with S1-S2. No significant murmur. Gastrointestinal:??Abdomen is soft, nontender, and nondistended with positive bowel sounds. No guarding or rebound tenderness. Skin:??Warm and dry. . Extremities:??No edema. Neurological:??Alert and oriented.?No gross focal deficits to casual conversation. Psychiatric:??Pleasant and cooperative with normal mood and affect.? . Objective Data Vital Signs Vital Signs: Vital Signs - 24 hr 12/27/22 14:00 12/27/22 22:00 12/28/22 06:00 Temperature 97.5 F L 98.4 F 97.3 F L Pulse Rate 75 84 74 Respiratory Rate 17 17 16 Blood Pressure 103/61 130/90 123/76 Pulse Oximetry 98 96 94 Intake/Output Intake/Output: Intake & Output 12/25/22 12/26/22 12/27/22 12/28/22 23:59 23:59 23:59 23:59 Intake Total 3180 2510 1180 360 Output Total 900 Balance 3180 1610 1180 360 Meds/Results Medications: Active Medications Generic Name Dose Route Start Last Admin Trade Name Freq PRN Reason Stop Dose Admin Acetaminophen 650 mg 12/16/22 23:30 12/24/22 16:24 Acetaminophen 325 Mg Tablet PO 650 mg Q6H PRN Administration Mild Pain (1-3) or Fever Artificial Tears 1 drop 12/26/22 17:00 12/28/22 09:08 Artificial Tears Ophth Soln 15 Ml Bottle EACH EYE 1 drop QID [facility] Administration Aspirin 81 mg 12/17/22 08:00 12/28/22 09:07 Aspirin 81 Mg Chewable Tablet PO 81 mg DAILY@0800 [facility] Administration Atenolol 50 mg 12/19/22 09:00 12/28/22 09:07 Atenolol 50 Mg Tablet PO 50 mg DAILY [facility] Administration Enalapril Maleate 10 mg 12/19/22 09:00 12/28/22 09:07 Enalapril Maleate 10 Mg Tablet PO 10 mg DAILY [facility] Administration Heparin Sodium (Porcine) 5,000 units 12/26/22 22:00 12/28/22 05:41 H
[2022-12-28 14:00] VITALS: BP 104/65; PULSE 78; RESP 24; TEMP 36.4; O2SAT 97
[2022-12-28 22:00] VITALS: BP 121/77; PULSE 80; RESP 18; TEMP 37.2; O2SAT 98
--- NOTE | 2022-12-29 | ECHO_ITS ---
Patient Info Name: Colby Cerda Age: 57 years : 1965 Gender: Male Ht: 67 in Wt: 218 lbs BSA: 2.20 m2 HR: 82 bpm BP: 115 / 73 mmHg Technical Quality: Good Exam Date: 12/29/2022 11:13 AM Exam Location: [facility] Pulmonary Patient Status: Inpatient Admit Date: 12/17/2022 Staff Ordering Physician: Josh Garcia MD Classroom Coordinator: Korina Ahn RDCS Attending Provider: Josh Garcia MD Referring Physician: Jose BERRY; Exam Type: CA echo doppler color flow Study Info Indications - RULE OUT VEGETATION Complete two-dimensional, color flow and Doppler transthoracic echocardiogram is performed. Summary 1. Complete two-dimensional, color flow and Doppler transthoracic echocardiogram is performed. 2. Left ventricular chamber dimension is normal. 3. Left ventricular systolic function is normal, estimated at 60-65%. 4. There is mild concentric increased left ventricular wall thickness. 5. The left ventricular diastolic function is abnormal. 6. E/e' 11 is mildly elevated. 7. Global longitudinal strain is abnormal at -14.4%. 8. Left atrial chamber dimension is moderately enlarged. 9. Moderate size mobile echogenic mitral valve vegetation visualized attached to anterior mitral valve leaflet, measuring 0.9 cm x 1.1 cm. 10. There is trace tricuspid valve regurgitation. 11. No pulmonary hypertension, estimated pulmonary arterial systolic pressure is 35 mmHg. 12. Dilated inferior vena cava with >50% collapse upon inspiration consistent with elevated right atrial pressure, 10 mmHg. 13. There is small circumferential pericardial effusion. Left Ventricle E/e' 11 is mildly elevated. Global longitudinal strain is abnormal at -14.4%. Left ventricular chamber dimension is normal. Left ventricular systolic function is normal, estimated at 60-65%. There is mild concentric increased left ventricular wall thickness. The left ventricular diastolic function is abnormal. Right Ventricle Right ventricular systolic function is normal and with normal TAPSE 1.8 cm. Right ventricular chamber dimension is normal. Left Atria Left atrial chamber dimension is moderately enlarged. Right Atria Right atrial chamber dimension is normal. Aortic Valve The aortic valve is trileaflet. There is no aortic valve stenosis. There is no aortic valve regurgitation. No aortic valve vegetation visualized. Pulmonic Valve There is no pulmonic regurgitation. No pulmonic valve vegetation visualized. Mitral Valve Moderate size mobile echogenic mitral valve vegetation visualized attached to anterior mitral valve leaflet, measuring 0.9 cm x 1.1 cm. There is no mitral valve stenosis. There is no mitral valve regurgitation. Tricuspid Valve There is trace tricuspid valve regurgitation. No pulmonary hypertension, estimated pulmonary arterial systolic pressure is 35 mmHg. No tricuspid valve vegetation visualized. Pericardium/Pleural No cardiac tamponade. There is small circumferential pericardial effusion. Inferior Vena Cava Dilated inferior vena cava with >50% collapse upon inspiration consistent with elevated right atrial pressure, 10 mmHg. Aorta The aortic root size at the sinus of Valsalva is normal. Left Ventricular Outflow Tract Name Value Normal LVOT 2D
[2022-12-29 05:38] VITALS: BP 115/73; PULSE 77; RESP 16; TEMP 36.9; O2SAT 95
[2022-12-29] MEDS: SALINE LOCK FLUSH 10 ML IV PUSH ×3 (05:52→20:55)
[2022-12-29] MEDS: metroNIDAZOLE 250 MG TABLET 500 MG PO ×3 (05:52→20:55)
[2022-12-29] MEDS: HEPARIN SODIUM 5,000 UNITS/ML VIAL 5000 UNITS SUB-Q ×3 (05:52→20:55)
[2022-12-29 08:18] VITALS: PULSE 75
[2022-12-29] MEDS: hydroCHLOROthiazide 25 MG TABLET PO (08:18)
[2022-12-29] MEDS: ASPIRIN 81 MG CHEWABLE TABLET PO (08:18)
[2022-12-29] MEDS: HYDROXYUREA (*CHEMO) 500 MG CAPSULE PO (08:18)
[2022-12-29] MEDS: atenoloL 50 MG TABLET PO (08:18)
[2022-12-29] MEDS: SODIUM CHLORIDE 1 GM TABLET 2 GM PO ×2 (08:19→16:24)
[2022-12-29] MEDS: ENALAPRIL MALEATE 10 MG TABLET PO (08:19)
[2022-12-29] MEDS: ARTIFICIAL TEARS OPHTH SOLN 15 ML BOTTLE 1 DROP EACH EYE ×4 (08:21→20:56)
--- NOTE | 2022-12-29 12:20 | PM.IMPN ---
Progress Note: A&P Assessment and Plan (1) Hyponatremia: Code(s): E87.1 - Hypo-osmolality and hyponatremia Status: Acute (2) Abnormal coagulation profile: Code(s): R79.1 - Abnormal coagulation profile Status: Acute (3) Pneumonia: Code(s): J18.9 - Pneumonia, unspecified organism Status: Acute (4) Sepsis: Code(s): A41.9 - Sepsis, unspecified organism Status: Acute (5) Thrombocytosis: Code(s): D75.839 - Thrombocytosis, unspecified Status: Acute (6) Severe sepsis: Code(s): A41.9 - Sepsis, unspecified organism; R65.20 - Severe sepsis without septic shock Status: Acute (7) Community acquired pneumonia: Code(s): J18.9 - Pneumonia, unspecified organism Status: Acute Plan ?57-year-old male with polycythemia vera, thrombocytosis, and hypertension who presented to the ED from home for evaluation of fever and vomiting.He was negative for flu, RSV, and COVID. Chest x-ray shows mild congestive changes and possible aspiration or pneumonia. CT abdomen and pelvis showed patchy bilateral lower lobe and middle lobe nodule infiltrates and bilateral lower lobe focal areas of atelectasis or consolidation as well as will hypoattenuating lesions of the spleen with a differential diagnosis to include splenic infarcts, splenic cyst, abscesses, and others per radiologist report. 1)Sepsis: 2/2 PNA c/w Levofloxacin, Flagyl Cultures negative till date Leucocytosis present - however this could be related to his polycythemia. Will have Pulmonary evaluate the patient to decide whether an antibiotic should be continued. Clinically he is better. cr scan done previously reviewed, will check bc and echo 2)Thrombocytosis/ Polycythemia: c/w hydroxyurea Appreciate onc help 3)Hyponatremia: Improving 4)HTN: c/w Enalpril, Atenolol, HCTZ 5)Dry Eyes:Add artifical tears 6)DVT ppx: Heparin SQ 7)Code:Full 8)Dispo:pt is accepted by [facility] and waiting for transfer.? Subjective Date/time seen: 12/29/22 12:20 No new complaints. No fever since December 25, 2022 Exam Narrative: General: alert and oriented x 3? HEENT:??Normocephalic, atraumatic.? PERRL, EOMI. Sclera anicteric. Neck:??Supple. Respiratory:?. Coarse lung sounds at the bases. Cardiovascular:??Regular rate and rhythm with S1-S2. No significant murmur. Gastrointestinal:??Abdomen is soft, nontender, and nondistended with positive bowel sounds. No guarding or rebound tenderness. Skin:??Warm and dry. . Extremities:??No edema. Neurological:??Alert and oriented.?No gross focal deficits to casual conversation. Psychiatric:??Pleasant and cooperative with normal mood and affect.? . Objective Data Vital Signs Vital Signs: Vital Signs - 24 hr 12/28/22 14:00 12/28/22 22:00 12/29/22 05:38 Temperature 97.5 F L 98.9 F 98.5 F Pulse Rate 78 80 77 Respiratory Rate 24 H 18 16 Blood Pressure 104/65 121/77 115/73 Pulse Oximetry 97 98 95 Oxygen Delivery 12/29/22 08:18 12/29/22 08:20 Temperature Pulse Rate 75 Respiratory Rate Blood Pressure Pulse Oximetry Oxygen Delivery Room Air Intake/Output Intake/Output: Intake & Output 12/26/22 12/27/22 12/28/22 12/29/22 23:59 23:59 23:59 23:59 Intake Total 2510 1180 1520 850 Output Total 900 350 Balance 1610 1180 1520 500 Meds/Results Medications: Active Medications Generic Name Dose Route Start Last Admin Trade Name Freq PRN Reason Stop Dose Admin Acetaminophen 650 mg 12/16/22 23:30 12/24/22 16:24 Acetaminophen 325 Mg Tablet PO 650 mg Q6H PRN Administration Mild Pain (1-3) or Fever Artificial Tears 1 drop 12/26/22 17:00 12/29/22 08:21 Artificial Tears Ophth Soln 15 Ml Bottle EACH EYE 1 drop QID [facility] Administration Aspirin 81 mg 12/17/22 08:00 12/29/22 08:18 Aspirin 81 Mg Chewable Tablet PO 81 mg DAILY@0800 [facility] Administration Atenolol 50 mg 12/19/22 09:00 12/29/22 08:18 Atenolol
[2022-12-29 14:15] VITALS: BP 128/80; PULSE 80; RESP 20; TEMP 36.7; O2SAT 97
[2022-12-29 21:26] VITALS: BP 127/90; PULSE 90; RESP 18; TEMP 36.5; O2SAT 97
--- NOTE | 2022-12-29 21:58 | PC.NURSE ---
Pt discharged to [facility] this shift at 2130. Report given to EMS and pt's belongings all transported with pt.
--- NOTE | 2023-01-15 12:52 | PM.TDS ---
Transfer Discharge Sum: Prov Provider Date of admission: 12/17/22 09:08 Primary care physician: Gabo Burton, Admitting clinician: Josh Garcia MD Consults: 12/16/22 Consult to Physician Routine Comment: Consulting Provider: Prem Matthews body recall instructor/MD group to consult: Esvin Gaytan Reason for consultation: PCV, splenic infarct?, thrombocytosis Has provider been notified: Yes 12/28/22 Consult to Physician Routine Comment: Spoke w/ 1127 12/28 (, [place]) Consulting Provider: Lailta Carter body recall instructor/MD group to consult: pulm Reason for consultation: ? treat ?pna Has provider been notified: Yes DS: Admitting Diagnosis Discharge Date 12/29/22 Admitting Diagnosis Polycythemia, thrombocytosis, sepsis, pneumonia DS: Discharge Diagnosis Discharge Diagnosis (1) Hyponatremia: Code(s): E87.1 - Hypo-osmolality and hyponatremia Status: Acute (2) Abnormal coagulation profile: Code(s): R79.1 - Abnormal coagulation profile Status: Acute (3) Pneumonia: Code(s): J18.9 - Pneumonia, unspecified organism Status: Acute (4) Sepsis: Code(s): A41.9 - Sepsis, unspecified organism Status: Acute (5) Thrombocytosis: Code(s): D75.839 - Thrombocytosis, unspecified Status: Acute (6) Severe sepsis: Code(s): A41.9 - Sepsis, unspecified organism; R65.20 - Severe sepsis without septic shock Status: Acute (7) Community acquired pneumonia: Code(s): J18.9 - Pneumonia, unspecified organism Status: Acute Plan ?57-year-old male with polycythemia vera, thrombocytosis, and hypertension who presented to the ED from home for evaluation of fever and vomiting.He was negative for flu, RSV, and COVID. Chest x-ray shows mild congestive changes and possible aspiration or pneumonia. CT abdomen and pelvis showed patchy bilateral lower lobe and middle lobe nodule infiltrates and bilateral lower lobe focal areas of atelectasis or consolidation as well as will hypoattenuating lesions of the spleen with a differential diagnosis to include splenic infarcts, splenic cyst, abscesses, and others per radiologist report. 1)Sepsis: 2/ PNA c/w Levofloxacin, Flagyl Cultures negative till date Leucocytosis present - however this could be related to his polycythemia. Will have Pulmonary evaluate the patient to decide whether an antibiotic should be continued. Clinically he is better. cr scan done previously reviewed, will check bc and echo 2)Thrombocytosis/ Polycythemia: c/w hydroxyurea Appreciate onc help 3)Hyponatremia: Improving 4)HTN: c/w Enalpril, Atenolol, HCTZ 5)Dry Eyes:Add artifical tears 6)DVT ppx: Heparin SQ 7)Code:Full 8)Dispo:pt is accepted by [facility] and waiting for transfer.? Transfer Discharge Sum: Med Medications Active and Home Medications: Home Medications aspirin 81 mg tablet 81 mg PO DAILY 11/15/20 [History Confirmed 12/16/22] atenolol 50 mg tablet 50 mg PO DAILY 11/15/20 [History Confirmed 12/16/22] enalapril 10 mg-hydrochlorothiazide 25 mg tablet 1 tablet PO DAILY 11/15/20 [History Confirmed 12/16/22] hydroxyurea 500 mg capsule 1,000 mg PO DAILY 12/16/22 [History Confirmed 12/16/22] Transfer Discharge Sum: Hosp Hospital Course Hospital course: Colby Cerda is a 57 year old male admitted for sepsis and pneumonia. Patient has significant hematologic history with thrombocytosis and polycythemia. Patient was treated here but due to his complicated hematologic history he was transferred to outside facility Time Spent with Patient Time attestation: Total time spent providing and/or coordinating transfer services: Exam Narrative: General: alert and oriented x 3? HEENT:??Normocephalic, atraumatic.? PERRL, EOMI. Sclera anicteric. Neck:??Supple. Respiratory:?. Coarse lung sounds at the bases. Cardiovascular:??Regular rate and rhythm with S1-S2. No significant murmur. Gastrointestinal:?
== END 2022-12-29 21:30 | disposition short-term general hospital (02) | DRG 871 ==
LOC: ANHED 17:56 → ANHIMU 22:09 → ANH3MEDSUR 12-17 18:35
PROVIDERS: Hospitalist; Internal Medicine; Physician Assistant; Admitting Provider Chiropractor; Emergency Provider Emergency Medicine; PCP Internal Medicine Gastroenterology; Visit Provider Internal Medicine
DX: A41.9 Sepsis, unspecified organism (principal); J18.9 Pneumonia, unspecified organism; E87.1 Hypo-osmolality and hyponatremia; D47.1 Chronic myeloproliferative disease; D45 Polycythemia vera; D75.839 Thrombocytosis, unspecified; E87.6 Hypokalemia; E86.0 Dehydration; I10 Essential (primary) hypertension; R79.1 Abnormal coagulation profile; R74.01 Elevation of levels of liver transaminase levels; Z79.82 Long term (current) use of aspirin; Z20.822 Contact with and (suspected) exposure to COVID-19
CPT/HCPCS: 36415; 36569; 71045; 71046; 71250; 74176; 74177; 80048; 80053; 80074; 80202; 81001; 82248; 82550; 82565; 82570; 83605; 83615; 83690; 83735; 83880; 83930; 83935; 84132; 84145; 84300; 84439; 84443; 84480; 84484; 85025; 85027; 85055; 85610; 85730; 86738; 87040; 87449; 87637; 87899; 93005; 93306; 96361; 96365; 96367; 96368; 99285; A9270; C1751; G0378; J0131; J0456; J0692; J0696; J1644; J1956; J2405; J2543; J3370; J7030; Q9967